=== PATIENT | male | born 1970 | race Caucasian/White ===

== ENCOUNTER 2019-04-06 19:36 | Emergency (ER) | payer BC, OTHER ==
[~2019-04-06] VITALS: Ht 177 cm; Wt 100.0 kg
[2019-04-06] MEDS ORDERED: NS IV 1000 ML 1,000 ML IV SCH (20:11)
[2019-04-06] MEDS ORDERED: fentaNYL INJECTION 100 MCG/2 ML AMP IVP ONE (20:15)
--- NOTE | 2019-04-06 20:18 | ED GI ---
General Chief Complaint: Abdominal/GI Problems Stated Complaint: LOW BACK PAIN GOING INTO LEGS, BLOOD IN STOOL Nursing Triage Note: THE PT IS AMBULATORY TO THE ROOM WITHOUT DIFFICULTY. NO DISTRESS IS SEEN ON ARRIVAL. LOC IS NORMAL FOR THE PT. THE PT STATES THAT HE SEEN SOME BLOOD IN HIS STOOL TODAY. Sepsis Screen: No Definite Risk Source of Information: Patient, Spouse Exam Limitations: No Limitations (SIERRA FORREST) History of Present Illness Date Seen by Provider: Apr 06, 2019 Time Seen by Provider: 19:56 Initial Comments The patient presents to ER by private conveyance from home with his with chief complaint that he noticed some bright red blood on wiping as well as in and around the stool itself. He's never had this before. He's never had colonoscopy or abdominal surgery before. He also would like addressed that he's having for the past 3 or 4 days some low back pain radiating down his right leg to the heel. He's never had any imaging or surgery or trauma to his low back. He does not follow routinely with a doctor but when he does see a doctor he sees Dr. Ramirez. For the past few weeks he's also had chest congestion cough and fever as late as 2 days ago. He thinks he has influenza. He has had plenty of sick contacts with flu. He does not smoke cigarettes or have a history of COPD wheezing, asthma etc. He is not on blood thinners nor does he have any known history of anemia. For the past month he says he's been been more fatigued easily and when he can usually work 8 hour day he says now after 2 hours he feels like he is done in. For his back he has been following up with chiropractic. (SIERRA FORREST) Allergies and Home Medications Allergies Coded Allergies: No Known Drug Allergies (Unverified , 04/06/19) Home Medications Hydrocodone Bit/Acetaminophen 1 Tab Tab, 1 EACH PO Q4-6HR PRN for PAIN-MODERATE Prescribed by: SIERRA FORREST on 04/06/192128 Ondansetron 4 Mg Tab.rapdis, 4 MG PO Q6H PRN for NAUSEA/VOMITING Prescribed by: SIERRA FORREST on 04/06/192128 Patient Home Medication List Home Medication List Reviewed: Yes (SIERRA FORREST) Review of Systems Review of Systems Constitutional: see HPI; No chills, No diaphoresis; fever, malaise EENTM: No Blurred Vision, No Double Vision Respiratory: Denies Cough, Denies Shortness of Air Cardiovascular: Denies Chest Pain, Denies Edema Gastrointestinal: See HPI; Denies Abdomen Distended; Abdominal Pain (mild diffuse), Blood Streaked Stools; Denies Constipated, Denies Diarrhea, Denies Difficulty Swallowing, Denies Nausea Genitourinary: Denies Burning, Denies Discharge Musculoskeletal: see HPI, back pain; No joint pain, No neck pain Skin: No hx of skin cancer, No pruritus, No rash Psychiatric/Neurological: Denies Headache, Denies Numbness Endocrine: Denies Flushing, Denies Increased Urine (SIERRA FORREST) All Other Systems Reviewed Negative Unless Noted: Yes (SIERRA FORREST) Past Pvfaleu-Ybfkyo-Lnejse Hx Patient Social History Alcohol Use: Denies Use Recreational Drug Use: No Smoking Status: Never a Smoker Recent Foreign Travel: No Contact w/Someone Who Travel: No Recent Infectious Disease Expo: No Physical Abuse: No Sexual Abuse: No Mistreated: No Fear: No (SIERRA FORREST) Physical Exam Vital Signs Vital Signs - First Documented 04/06/19 04/06/19 19:59 22:56 Temp 36.7 Pulse 73 Resp 18 B/P (MAP) 132/99 (110) Pulse Ox 96 (ROLLYKELLI COB SAWYER) Vital Signs Capillary Refill : Less Than 3 Seconds (SIERRA FORREST) Height/Weight/BMI Height: '" Weight: lbs. oz. kg; 31.00 BMI Method: General Appearance: WD/WN, no apparent distress HEENT: PERRL/EOMI, normal ENT inspection, TMs normal, pharynx normal Neck: non-tender, full range of motion, supple, normal inspection Respiratory: lungs clear, normal breath sounds, no respiratory distress, no accessory muscle use Cardiovascular: normal peripheral pulses, regular rate, rhythm, no edema Peripheral Pulses: 2+ Radial Pulses (R), 2+ Radial Pulses (L) Gastrointestinal: normal bowel sounds, soft; No guarding, No rebound; tenderness (mild, diffuse without mesenteric signs, Rovsing sign, psoas sign or heeltap tenderness) Rectal: normal exam, normal rectal tone, heme positive stool, other (modest apricot size prostate is soft, nonnodular, minimally tender without rectal mass.) Extremities: normal range of motion, normal inspection, no calf tenderness, normal capillary refill Back: normal inspection, no CVA tenderness, no vertebral tenderness, other (ten derness over the iliosacral joint right side) Neurologic/Psychiatric: alert, normal mood/affect, oriented x 3 Skin: normal color, warm/dry (SIERRA FORREST) Progress/Results/Core Measures Results/Orders Lab Results Laboratory Tests Test 04/06/19 20:20 04/06/19 20:50 Range/Units White Blood Count 3.8 L 4.3-11.0 10^3/uL Red Blood Count 4.74 4.35-5.85 10^6/uL Hemoglobin 14.6 13.3-17.7 G/DL Hematocrit 44 40-54 % Mean Corpuscular Volume 93 80-99 FL Mean Corpuscular Hemoglobin 31 25-34 PG Mean Corpuscular Hemoglobin Concent 33 32-36 G/DL Red Cell Distribution Width 11.9 10.0-14.5 % Platelet Count 188 130-400 10^3/uL Mean Platelet Volume 10.1 7.4-10.4 FL Neutrophils (%) (Auto) 60 42-75 % Lymphocytes (%) (Auto) 29 12-44 % Monocytes (%) (Auto) 11 0-12 % Eosinophils (%) (Auto) 0 0-10 % Basophils (%) (Auto) 0 0-10 % Neutrophils # (Auto) 2.3 1.8-7.8 X 10^3 Lymphocytes # (Auto) 1.1 1.0-4.0 X 10^3 Monocytes # (Auto) 0.4 0.0-1.0 X 10^3 Eosinophils # (Auto) 0.0 0.0-0.3 10^3/uL Basophils # (Auto) 0.0 0.0-0.1 10^3/uL Sodium Level 138 135-145 MMOL/L Potassium Level 4.0 3.6-5.0 MMOL/L Chloride Level 105 98-107 MMOL/L Carbon Dioxide Level 24 21-32 MMOL/L Anion Gap 9 5-14 MMOL/L Blood Urea Nitrogen 11 7-18 MG/DL Creatinine 1.04 0.60-1.30 MG/DL Estimat Glomerular Filtration Rate > 60 BUN/Creatinine Ratio 11 Glucose Level 96 70-105 MG/DL Calcium Level 8.3 L 8.5-10.1 MG/DL Corrected Calcium 8.5 8.5-10.1 MG/DL Total Bilirubin 0.3 0.1-1.0 MG/DL Aspartate Amino Transf (AST/SGOT) 26 5-34 U/L Alanine Aminotransferase (ALT/SGPT) 19 0-55 U/L Alkaline Phosphatase 76 40-136 U/L Total Protein 7.0 6.4-8.2 GM/DL Albumin 3.8 3.2-4.5 GM/DL Urine Color YELLOW Urine Clarity CLEAR Urine pH 5.5 5-9 Urine Specific [place] >=1.030 1.016-1.022 Urine Protein TRACE H NEGATIVE Urine Glucose (UA) NEGATIVE NEGATIVE Urine Ketones NEGATIVE NEGATIVE Urine Nitrite NEGATIVE NEGATIVE Urine Bilirubin 1+ H NEGATIVE Urine Urobilinogen 0.2 < = 1.0 MG/DL Urine Leukocyte Esterase NEGATIVE NEGATIVE Urine RBC (Auto) NEGATIVE NEGATIVE Urine RBC NONE /HPF Urine WBC NONE /HPF Urine Squamous Epithelial Cells 0-2 /HPF Urine Crystals NONE /LPF Urine Bacteria NEGATIVE /HPF Urine Casts NONE /LPF Urine Mucus LARGE H /LPF Urine Culture Indicated NO (KELLI LOFTON) Micro Results Microbiology 04/06/19 Influenza Types A,B Antigen (FLORI) - Final, Complete (KELLI LOFTON) My Orders Orders - KELLI LOFTON Hydrocodone/Apap 5/325 Tablet (Lortab 5 (04/06/19 23:15) (KELLI LOFTON) Medications Given in ED Current Medications Medications Dose Ordered Sig/Drake Route Start Time Stop Time Status Last Admin Dose Admin Acetaminophen/ Hydrocodone Bitart 1 ea Q4H PRN PO 04/06/19 23:15 04/06/19 23:34 DC 04/06/19 23:11 1 EA Acetaminophen/ Hydrocodone Bitart 1 tab ONCE ONCE PO 04/06/19 23:15 04/06/19 23:16 DC 04/06/19 23:08 1 TAB Fentanyl Citrate 50 mcg ONCE ONCE IVP 04/06/19 20:15 04/06/19 20:16 DC 04/06/19 20:33 50 MCG Iohexol 100 ml ONCE ONCE IV 04/06/19 21:15 04/06/19 21:42 DC 04/06/19 21:58 100 ML Pantoprazole 40 mg ONCE ONCE IV 04/06/19 20:30 04/06/19 20:31 DC 04/06/19 20:37 40 MG Sodium Chloride 80 ml ONCE ONCE IV 04/06/19 21:15 04/06/19 21:42 DC 04/06/19 21:58 80 ML (KELLI LOFTONP) Vital Signs/I&O 04/06/19 04/06/19 19:59 22:56 Temp 36.7 36.9 Pulse 73 74 Resp 18 18 B/P (MAP) 132/99 (110) 125/75 (110) Pulse Ox 96 04/07/19 00:00 Intake Total 1000 ml Balance 1000 ml (KELLI LOFTON) Blood Pressure Mean: 110 Progress Progress Note : Time: 20:17 Progress Note The patient has a plethora of subacute complaints. We will get an influenza swab, chest x-ray. He has aseptic vital signs. Labs can help reveal if he has a significant anemia. A fecal occult blood test can confirm that he is having rectal bleeding. We'll give him pantoprazole by IV as well as some fluids to help induce a urine. This will help rule out the possibility of a kidney stone as a source of his neck pain and blood in toilet. We do CT of his abdomen pelvis with IV contrast and some fentanyl for pain. Toradol would be a better choice but would like to avoid increasing his bleeding. We can then have him follow-up with surgery for outpatient endoscopy as appropriate if nothing emergent is found. (SIERRA FORREST) Diagnostic Imaging Diagonstic Imaging: Xray Plain Films/CT/US/NM/MRI: chest (1v) Comments [facility] [place], [place] NAME: GIOVANNY DUKES [facility] REC#: [id number] PT STATUS: REG ER : 1970 PHYSICIAN: SIERRA FORREST MD ADMIT DATE: 04/06/19/ER Signed Date of Exam:04/06/19 CHEST 1 VIEW, AP/PA ONLY INDICATION: Bloody stools and back pain. EXAMINATION: Single view of the chest was obtained. FINDINGS: The heart size is normal. There is patchy right basilar atelectasis and/or pneumonitis. There is no pleural effusion or pneumothorax. The mediastinum is unremarkable. IMPRESSION: Patchy right basilar atelectasis and/or pneumonitis. Dictated by: Dictated on workstation # [id number] Dict: 04/06/192055 Trans: 04/06/192104 PJE [id number] Interpreted by: DELMIS KELLY MD Electronically signed by: DELMIS KELLY MD 04/06/192104 Reviewed: Reviewed by Me Diagonstic Imaging: CT (with IV contrast) Plain Films/CT/US/NM/MRI: abdomen, pelvis Comments Symmetric nephrograms without hydronephrosis or perinephric stranding. No evidence of ureteral or bladder stone. Left parapelvic renal cyst that is incidental. Basilar atelectasis. Mild elevation of the right hemidiaphragm. Suggestion of mild hepatic steatosis. Gallbladder appears within limits. No bowel dilatation or free air. Normal caliber appendix without secondary signs. No free fluid. L4-L5 spondylosis/discogenic change. Reviewed: Reviewed by Me (SIERRA FORREST) Departure Impression Primary Impression: Influenza A Additional Impressions: Bright red blood per rectum Lumbago with sciatica, right side Qualified Codes: M54.41 - Lumbago with sciatica, right side Disposition: 01 HOME, SELF-CARE Condition: Stable Departure-Patient Inst. Decision time for Depature: 21:29 (SIERRA FORREST) Referrals: SMITA CHASE PANKAJ K MD (PCP/Family) Primary Care Physician Patient Instructions: Bloody Stools, Adult (DC), Sciatica Exercises, Flu, Adult (DC) Add. Discharge Instructions: Drink lots of fluids. Humidifiers and vapor rubs or helpful. You may return to work after you are fever free for 24 hours without the use of Tylenol or ibuprofen. Avoid NSAIDs such as ibuprofen, Aleve, naproxen as much as possible. Call Dr. Chase and set up a colonoscopy at your convenience over the next few weeks. Tylenol 650 mg every 8 hours as needed for pain or fever. You may use the hydrocodone one tablet every 6 hours as needed for severe breakthrough pain that is keeping you from being functional. Hydrocodone will cause constipation and drowsiness. All discharge instructions reviewed with patient and/or family. Voiced understanding. Scripts Ondansetron (Ondansetron Odt) 4 Mg Tab.rapdis 4 MG PO Q6H PRN for NAUSEA/VOMITING, #12 TAB 0 Refills Prov: SIERRA FORREST 04/06/19 Hydrocodone Bit/Acetaminophen (Hydrocodone/Acetaminophen 5/325mg Tablet) 1 Tab Tab 1 EACH PO Q4-6HR PRN for PAIN-MODERATE MDD 10 for 3 Days, #14 TAB 0 Refills Prov: SIERRA FORREST 04/06/19 Work/School Note: Work Release Form Date Seen in the Emergency Department: Apr 06, 2019 Return to Work: Apr 11, 2019 Restrictions: Return-No Fever (24hrs) Copy Copies To 1: SMITA CHASE TITUS J Apr 06, 2019 20:18 KELLI LOFTON Apr 06, 2019 23:04
[2019-04-06 20:28] LABS: BASOPHILS % (AUTO) 0 % (0-10); EOSINOPHILS % (AUTO) 0 % (0-10); HEMATOCRIT 44 % (40-54); HEMOGLOBIN 14.6 G/DL (13.3-17.7); LYMPHOCYTES # (AUTO) 1.1 X 10^3 (1.0-4.0); LYMPHOCYTES % (AUTO) 29 % (12-44); MEAN CORPUSCULAR HEMOGLOBIN 31 PG (25-34); MEAN CORPUSCULAR HGB CONC 33 G/DL (32-36); MEAN CORPUSCULAR VOLUME 93 FL (80-99); MEAN PLATELET VOLUME 10.1 FL (7.4-10.4); MONOCYTES # (AUTO) 0.4 X 10^3 (0.0-1.0); MONOCYTES % (AUTO) 11 % (0-12); NEUTROPHILS # (AUTO) 2.3 X 10^3 (1.8-7.8); NEUTROPHILS % (AUTO) 60 % (42-75); PLATELET COUNT 188 10^3/uL (130-400); RED CELL DISTRIBUTION WIDTH 11.9 % (10.0-14.5); WHITE BLOOD COUNT 3.8 10^3/uL (4.3-11.0)
[2019-04-06] MEDS ORDERED: PANTOPRAZOLE 40 MG (PROTONIX) VIAL IV ONE (20:30)
[2019-04-06 20:47] LABS: ALANINE AMINOTRANSFERASE 19 U/L (0-55); ALBUMIN 3.8 GM/DL (3.2-4.5); ALKALINE PHOSPHATASE 76 U/L (40-136); BILIRUBIN,TOTAL 0.3 MG/DL (0.1-1.0); BUN/CREATININE RATIO 11; CALCIUM 8.3 MG/DL (8.5-10.1); CARBON DIOXIDE 24 MMOL/L (21-32); CHLORIDE 105 MMOL/L (98-107); CREATININE SERUM 1.04 MG/DL (0.60-1.30); GFR ESTIMATED > 60; GLUCOSE 96 MG/DL (70-105); SODIUM 138 MMOL/L (135-145)
--- NOTE | 2019-04-06 21:00 | Diagnostic Imaging Report ---
INDICATION: Bloody stools and back pain. EXAMINATION: Single view of the chest was obtained. FINDINGS: The heart size is normal. There is patchy right basilar atelectasis and/or pneumonitis. There is no pleural effusion or pneumothorax. The mediastinum is unremarkable. IMPRESSION: Patchy right basilar atelectasis and/or pneumonitis. Dictated by: Dictated on workstation # [id number]
[2019-04-06] MEDS ORDERED: NS 100 ML (IVPB) BAG IV ONE (21:15)
[2019-04-06] MEDS ORDERED: IOHEXOL 350 MG/ML 100 ML (OMNIPAQUE 350) VIAL IV ONE (21:15)
[2019-04-06 21:22] LABS: CLARITY,URINE CLEAR; COLOR,URINE YELLOW; GLUCOSE, URINE (UA) NEGATIVE (NEGATIVE); KETONES,URINE NEGATIVE (NEGATIVE); LEUKOCYTE ESTERASE ,URINE NEGATIVE (NEGATIVE); NITRITE,URINE NEGATIVE (NEGATIVE); PH,URINE 5.5 (5-9); PROTEIN,URINE TRACE (NEGATIVE)
[2019-04-06 21:23] LABS: BACTERIA,URINE NEGATIVE /HPF; BILIRUBIN,URINE 1+ (NEGATIVE); SQUAMOUS EPITHELIAL CELL,UR 0-2 /HPF
[2019-04-06] MEDS ORDERED: ACHD5005 PO (21:29)
[2019-04-06] MEDS ORDERED: ONDA4TAB11 PO (21:29)
--- NOTE | 2019-04-06 22:08 | NUR ---
BED SIDE OCCULT STOOL IS POSITIVE. IS INFORMED.
--- NOTE | 2019-04-06 22:30 | NUR ---
ASSUMED CARE OF THIS PATIENT AT THIS TIME. INTRODUCED SELF TO PATIENT AND SPOUSE. DISCUSSED PLAN OF CARE AND TIME LINE FOR DISCHARGE. PATIENT IS RESTING QUIETLY DENIES PAIN OR NEEDS AT THIS TIME WILL CONTINUE TO MONITOR.
[2019-04-06 22:56] VITALS: BP 125/75
[2019-04-06] MEDS ORDERED: HYDROcodone/APAP 5 MG/325 MG (LORTAB) TAB ONE (23:00)
[2019-04-06] MEDS ORDERED: RX-HYDROCODONE/APAP 5/325 MG #4 TAB PK PO PRN (23:15)
[2019-04-06] MEDS ORDERED: HYDROcodone/APAP 5 MG/325 MG (LORTAB) TAB PO ONE (23:15)
--- NOTE | 2019-04-07 07:08 | Diagnostic Imaging Report ---
PROCEDURE: CT abdomen and pelvis with contrast. TECHNIQUE: Multiple contiguous axial images were obtained through the abdomen and pelvis after administration of intravenous contrast. Auto Exposure Controls were utilized during the CT exam to meet ALARA standards for radiation dose reduction. INDICATION: Low back pain There are no prior studies available for comparison. The liver is homogeneous and not enlarged. The spleen, pancreas, adrenals, kidneys, aorta and inferior vena cava and gallbladder show no sign of an acute abnormality. There does appear to be 2.6 cm parapelvic cyst involving the left kidney. The stomach is not well-distended and consequently difficult to assess. There is gas in both the large and small bowel in a nonspecific fashion. There is no sign of bowel obstruction. The appendix was visualized and is not abnormally thickened. There is no pelvic mass or free fluid collection evident. The urinary bladder and prostate gland are grossly unremarkable. The bone windows show no sign of a fracture or of a destructive lesion. There is degenerative disc and bony disease involving the lower lumbar spine. There may be trefoil stenosis at L4-L5. If further imaging is desired, then MRI would be recommended. The lung bases are generally clear. There is a small amount of atelectasis at each lung base. There is elevation of the right hemidiaphragm and there is a small amount of compressive atelectasis adjacent to the diaphragm. IMPRESSION: 1. There is no acute abnormality of the abdomen or pelvis. 2. There is degenerative disc and bony disease involving the lower lumbar spine and there is a question of trefoil stenosis at L4-L5. Recommendations as above. Dictated by: Dictated on workstation # [id number]
== END 2019-04-06 23:15 | disposition home or self-care (01) ==
LOC: ER 19:40
DX: J10.1 Influenza due to other identified influenza virus with other respiratory manifestations (principal); M54.41 Lumbago with sciatica, right side; K62.5 Hemorrhage of anus and rectum
CPT/HCPCS: 36415; 71045; 74177; 80053; 81000; 85025; 87804

== ENCOUNTER 2019-04-10 05:41 | Outpatient (CLI) | payer BC ==
[~2019-04-10] VITALS: Ht 172.7 cm; Wt 99.1 kg
[~2019-04-10 05:41] MED LIST: ACHD5005 PO; ONDA4TAB11 PO
[2019-04-10] MEDS ORDERED: CYCL10TA9 PO (09:59)
== END 2019-04-10 12:02 | disposition home or self-care (01) ==
LOC: PREOP 05:41
PROVIDERS: ATTEND Surgery
DX: Z01.818 Encounter for other preprocedural examination (principal)

== ENCOUNTER 2019-04-23 07:55 | Outpatient (CLI) | payer BC ==
[~2019-04-23] VITALS: Ht 172.7 cm; Wt 101.0 kg
[~2019-04-23 07:55] MED LIST changes: -ACET-2267 PO; -HOLD METFORMIN - RECEIVED CONTRAST 20 ML VIAL IV SCH; -HYDR-4226 PO; -IOHEXOL 350 MG/ML 100 ML (OMNIPAQUE 350) VIAL IV ONE; -NS 100 ML (IVPB) BAG IV ONE
[2019-04-23 08:06] VITALS: BP 125/80
[2019-04-23 08:36] LABS: BASOPHILS % (AUTO) 1 % (0-10); EOSINOPHILS # (AUTO) 0.2 10^3/uL (0.0-0.3); EOSINOPHILS % (AUTO) 2 % (0-10); HEMATOCRIT 44 % (40-54); HEMOGLOBIN 14.7 G/DL (13.3-17.7); LYMPHOCYTES # (AUTO) 1.6 X 10^3 (1.0-4.0); LYMPHOCYTES % (AUTO) 25 % (12-44); MEAN CORPUSCULAR HEMOGLOBIN 31 PG (25-34); MEAN CORPUSCULAR HGB CONC 33 G/DL (32-36); MEAN CORPUSCULAR VOLUME 94 FL (80-99); MEAN PLATELET VOLUME 9.7 FL (7.4-10.4); MONOCYTES # (AUTO) 0.4 X 10^3 (0.0-1.0); MONOCYTES % (AUTO) 7 % (0-12); NEUTROPHILS # (AUTO) 4.3 X 10^3 (1.8-7.8); NEUTROPHILS % (AUTO) 66 % (42-75); PLATELET COUNT 324 10^3/uL (130-400); RED CELL DISTRIBUTION WIDTH 12.1 % (10.0-14.5); WHITE BLOOD COUNT 6.5 10^3/uL (4.3-11.0)
[2019-04-24] MEDS ORDERED: ACET-2267 PO (14:08)
[2019-04-24] MEDS ORDERED: ONDA4TAB11 PO (14:09)
[2019-04-24] MEDS ORDERED: HYDR-4226 PO (14:15)
== END 2019-04-23 08:40 | disposition home or self-care (01) ==
LOC: PREOP 07:55
PROVIDERS: ATTEND Surgery
DX: Z01.812 Encounter for preprocedural laboratory examination (principal); C18.9 Malignant neoplasm of colon, unspecified
CPT/HCPCS: 36415; 82378; 85025; 87081

== ENCOUNTER → 2019-04-23 | Outpatient (CLI) | payer BC ==
[~2019-04-23] MED LIST changes: +ACET-2267 PO; +CYCL10TA9 PO; +HOLD METFORMIN - RECEIVED CONTRAST 20 ML VIAL IV SCH; +HYDR-4226 PO; +IOHEXOL 350 MG/ML 100 ML (OMNIPAQUE 350) VIAL IV ONE; +NS 100 ML (IVPB) BAG IV ONE
--- NOTE | 2019-04-23 12:44 | Diagnostic Imaging Report ---
CT CHEST W TECHNIQUE: Multiple contiguous axial images were obtained through the chest without the use of intravenous contrast. All CT scans use one or more of the following dose optimizing techniques: automated exposure control, MA and/or KvP adjustment based on a patient size and exam type, or iterative reconstruction. INDICATION: Colon cancer. COMPARISON: CT abdomen and pelvis of 04/06/2019. FINDINGS: Lungs and airway: No endoluminal nodule within the trachea. No pulmonary mass, nodule or consolidation. Specifically, there are no pulmonary nodules that would suggest metastatic disease. Pleura: No pleural effusion or pneumothorax. Heart and mediastinum: Thyroid is normal. No supraclavicular or axillary lymphadenopathy. No mediastinal, hilar or juxtaphrenic lymphadenopathy. Heart is normal in size without pericardial effusion. Normal caliber thoracic aorta. Upper abdomen: No features of metastatic disease in the upper abdomen. Please see CT abdomen and pelvis report from 04/06/2019 for more complete details. Musculoskeletal: No lytic or blastic skeletal lesions. IMPRESSION: 1. No features of metastatic disease in the chest. Dictated by: Dictated on workstation # [id number]
== END ==
LOC: RAD 11:00
PROVIDERS: ATTEND Surgery
DX: C18.9 Malignant neoplasm of colon, unspecified (principal)
CPT/HCPCS: 71260

== ENCOUNTER 2019-04-24 07:03 | Inpatient (IN) | payer BC ==
[~2019-04-24] VITALS: Ht 172.7 cm; Wt 101.0 kg
[2019-04-24] VITALS (12 sets, daily range): BP systolic 104–142; BP diastolic 63–94
[2019-04-24] MEDS ORDERED: LACTATED RINGERS 1,000 ML IV PRN (07:08)
[2019-04-24] MEDS ORDERED: fentaNYL INJECTION 100 MCG/2 ML AMP ONE ×2 (07:12→08:43)
[2019-04-24] MEDS ORDERED: MIDAZOLAM 2 MG/2 ML (VERSED) VIAL ONE (07:12)
[2019-04-24] MEDS ORDERED: ceFAZolin 2 GM/50 ML NS 50 ML IV ONE (07:15)
[2019-04-24] MEDS ORDERED: BUP/EPI 0.5% 1:200,000 (SENSORCAINE) 30 ML VIAL ONE (07:48)
[2019-04-24] MEDS ORDERED: ROCURONIUM 10 MG/ML 5 ML SYRINGE IV ONE (08:04)
[2019-04-24] MEDS ORDERED: SEVOFLURANE (ULTANE) 15 ML INHAL SOLN ONE ×6 (08:04→10:09)
[2019-04-24] MEDS ORDERED: LIDOCAINE PF 2% 5 ML (XYLOCAINE) VIAL ONE (08:04)
[2019-04-24] MEDS ORDERED: DEXAMETHASONE 10 MG/ML (DECADRON) 1 ML VIAL ONE (08:04)
[2019-04-24] MEDS ORDERED: ONDANSETRON 4 MG/2 ML (SDV) Z0FRAN ONE (08:04)
[2019-04-24] MEDS ORDERED: proPOfol 200 MG/20 ML (DIPRIVAN) VIAL IV ONE (08:04)
--- NOTE | 2019-04-24 08:13 | Progress Note-Pre Operative ---
Pre-Operative Progress Note H&P Reviewed The H&P was reviewed, patient examined and no changes noted. Time Seen by Provider: 08:09 Date H&P Reviewed: Apr 24, 2019 Time H&P Reviewed: 08:10 Pre-Operative Diagnosis: Rectal Cancer SMITA CHASE DO Apr 24, 2019 08:13
[2019-04-24] MEDS ORDERED: fentaNYL INJECTION 100 MCG/2 ML AMP IVP ONE (08:30)
[2019-04-24] MEDS ORDERED: morphine INJ 10 MG/ML 1ML (SYR OR VIAL) IVP ONE (08:30)
[2019-04-24] MEDS ORDERED: ONDANSETRON 4 MG/2 ML (SDV) Z0FRAN IVP PRN ×2 (08:30→10:30)
[2019-04-24] MEDS ORDERED: MEPERIDINE (DEMEROL) INJ 50 MG/ML IVP ONE (08:30)
[2019-04-24] MEDS ORDERED: morphine INJ 10 MG/ML 1ML (SYR OR VIAL) ONE (09:16)
[2019-04-24] MEDS ORDERED: BUPIVACAINE 0.5% 30 ML (SENSORCAINE) VIAL ONE (09:55)
[2019-04-24] MEDS ORDERED: GLYCOPYRROLATE 0.2 MG/ML (ROBINUL) 2 ML VIAL ONE (10:07)
[2019-04-24] MEDS ORDERED: NEOSTIGMINE 3 MG/3 ML VIAL ONE (10:07)
--- NOTE | 2019-04-24 10:24 | Progress Note-Post Operative ---
Post-Operative Progess Note Surgeon (s)/Car Loader (s) Surgeon SMITA CHASE DO Car Loader: Isaías Pre-Operative Diagnosis Rectal Cancer Post-Operative Diagnosis same pending path Procedure & Operative Findings Date of Procedure 04/24/19 Procedure Performed/Findings LAR Lap-hand assisted with primary anastomosis Anesthesia Type GET Estimated Blood Loss Estimated blood loss (mL): 75ml Specimens/Packing Specimens Removed rectum and portion of sigmoid SMITA CHASE DO Apr 24, 2019 10:24
--- NOTE | 2019-04-24 11:45 | NUR ---
GIOVANNY DUKES admitted to room 424, with an admitting diagnosis of post op colon resection , on 04/24/19 from [facility] , accompanied by staff.GIOVANNY DUKES introduced to surroundings, call light, bed controls, phone, TV, temperature control, lights, meal times, smoking policy, visitor policy, side rail policy, bathrooms and showers. Patient Rights given to patient in the handbook. GIOVANNY DUKES verbalizes understanding that [facility] is not responsible for the loss or damage to any personal effects or valuables that are kept in the patients posession during their hospitalization. GIOVANNY DUKES verbalizes understanding of Interdisciplinary Patient Education. Patient and/or family were informed about the Rapid Response Team and its purpose.
[2019-04-24] MEDS: metroNIDAZOLE 500MG/100ML IVPB 100 ML IV SCH ×2 (13:25→20:34)
[2019-04-24] MEDS: ACETAMINOPHEN 500 MG TAB (TYLENOL) PO SCH ×2 (13:26→20:34)
[2019-04-24] MEDS: KETOROLAC 30 MG/ML VIAL IVP SCH ×2 (13:26→17:00)
[2019-04-24] MEDS: LACTATED RINGERS 1,000 ML IV SCH ×3 (13:27→23:50)
[2019-04-24] MEDS ORDERED: ACET-2267 PO (14:08)
[2019-04-24] MEDS ORDERED: ONDA4TAB11 PO (14:09)
[2019-04-24] MEDS ORDERED: HYDR-4226 PO (14:15)
--- NOTE | 2019-04-24 14:15 | NUR ---
SPOKE WITH THE PT AND WENT THRU THE EXT MED HISTORY TO COMPLETE THE MED REC. ONLY MED THE PT TAKES DAILY IS FLEXERIL 10 MG HS THE ZOFRAN AND HYDROCODONE/APAP ARE PRN NEEDED AFTER SURGERY. INDICATES HE HAS NOT TAKEN MUCH OF EITHER OF THOSE- AND IT WAS PICKED UP MORE FOR ANTICIPATION OF SYMPTOMS AFTER SURGERY. OTC MEDS: TYLENOL
[2019-04-24] MEDS: ceFAZolin 2 GM/50 ML NS 50 ML IV SCH ×2 (16:00→23:51)
[2019-04-25] VITALS (7 sets, daily range): BP systolic 96–118; BP diastolic 53–73
[2019-04-25] MEDS: KETOROLAC 30 MG/ML VIAL IVP SCH ×4 (01:22→19:46)
--- NOTE | 2019-04-25 02:38 | OPERATIVE REPORT ---
DATE OF SERVICE: PREOPERATIVE DIAGNOSIS: Rectal cancer. POSTOPERATIVE DIAGNOSIS: Rectal cancer, pending pathology. PROCEDURE: Low anterior resection laparoscopic hand-assisted with primary anastomosis. SURGEON: Juan J Livingston DO REGISTERED APPRAISER: Steven Metz DO. ANESTHESIA: General endotracheal tube. SPECIMEN: Portion of rectum and sigmoid colon. BLOOD LOSS: Approximately 75 mL. FLUIDS: Per anesthesia. POSTOPERATIVE CONDITION: Stable. INDICATION FOR PROCEDURE: The patient is a 49-year-old male, who recently had a colonoscopy unfortunately found a rectal cancer about 11 cm from the anal verge. FINDINGS: The patient had a rectal cancer, able to get below this by about 2 to 3 cm and removed this and sent to pathology. PROCEDURE NOTE: After informed consent was obtained, the patient was brought to the operating room, placed on the table in lithotomy position. He was sterilely prepped and draped in normal fashion. Local lidocaine was used to infiltrate the skin below the umbilicus and made an incision with a #15 blade, carried down through the skin into subcutaneous tissue, then deepened down to subcutaneous tissue with Bovie electrocautery down to fascia. Fascia was incised with Bovie electrocautery and bluntly entered the abdomen. Increased the incision superiorly and inferiorly to be about 6 cm incision below the umbilicus. I then placed a GelPort and then placed 2 more ports, 5 mm port in the right lower quadrant and a 12 mm port in the left lower quadrant done all under direct visualization. Had created pneumoperitoneum and then placed the patient in Trendelenburg, scored along the rectum with a Bovie electrocautery spatula as well and there were some adhesions to the left pelvic gutter and along the sidewall. These were taken down with the Bovie electrocautery as well. They will go down through the peritoneal reflection to get into the low rectal area, felt could feel the mass able to pull this up, then dissected down, actually opened the port and used a contour stapler to come across the sigmoid colon getting right under the colon placed the contour stapler clamping and firing thereby transecting this and then using the LigaSure to come across the mesentery going down to the base of the mesentery and then going down along the mesentery at the base, taking care to stay midline stay away from the ureters down to the sacral promontory and then cut through here with Bovie electrocautery as well as blunt dissection and then did a total mesorectal excision by going right along the sacrum and bluntly dissecting this fat up. We had created the pneumoperitoneum and placed the GelPort after I had used a contour stapler and then continued the dissection laparoscopically. Going down, able to get around the rectum distally below the peritoneal reflection and then below the mass. At this point, took the GelPort out again and then used a Sweetheart to hold down to hold the pelvic tissue out of the way and got another contour stapler across the distal rectum, able to come across this actually took this, took the rectum and then the posterior fat with contour stapler two separate loads able to then remove this. At this point, copiously irrigated. Hemostasis obtained and then I went down below placed dilators 25, 28 and 31 dilator easily went up and Dr. Metz was above could see, then pushed at the distal portion of the rectal stump and then placed the 29 ILS stapler. Just prior to this, we had done a pursestring applicator across the proximal portion of the sigmoid colon and descending colon and then placed a 29 ILS anvil in here. This was then placed into the pelvis and then advanced the ILS stapler and then advanced the trocar through the rectal stump attached the trocar to the anvil then tightened this down, held for 30 seconds and then clamped and fired, held for 20 seconds and then removed this with a three-quarter turn, it came out easily had 2 good donuts, superior donut and inferior donut. Dr. Metz then clamped the colon, used a rigid proctoscope and insufflated some air while he placed some fluid in the pelvis. No bubble seen. No leakage, looked like I could see anastomosis and anastomosis looked good. At this point, then released the air. Copiously irrigated the abdomen with normal saline, suctioned this out and then closed the lower incision with a #1 double stranded PDS suture running from superior portion to inferior portion tying to itself. We then recreated pneumoperitoneum because the 5 mm and 12 mm ports were still in and then looked at the abdominal wall. It was closed and looked good, looked at the anastomosis, there was no tension on the anastomosis and at this point then removed these ports, allowed the pneumoperitoneum to escape. Closed the skin with akilah. Area was cleaned and dried and the patient was transferred to recovery room in stable condition. Sponge, instrument and needle count correct at the end of the case. Dr. Metz assisted in this case helping to make incisions, close incisions as well as identify anatomy, and hold anatomy out of the away. Job ID: [id number] DocumentID: [id number] Dictated Date: 04/24/2019 19:14:10 Equipment Or Machinery Cleaner Date: 04/25/2019 02:37:28 Dictated By: JUAN J LIVINGSTON DO
[2019-04-25] MEDS: ACETAMINOPHEN 500 MG TAB (TYLENOL) PO SCH ×3 (05:31→21:13)
--- NOTE | 2019-04-25 08:01 | Progress Note - Surgery ---
[facility] 04/25/19 0801: Subjective Date Seen by a Provider: Apr 25, 2019 Time Seen by a Provider: 07:45 Subjective/Events-last exam Patient is doing well. States that he had trouble sleeping due to outside noise. Has no abdominal complaints, no nausea or vomiting report. Patient reports sciatic has improved and disappeared after the surgery. Review of Systems General: No Fatigue, No Malaise HEENT: No Head Aches, No Visual Changes, No Dysphasia; Sore Throat (ET tube ) Pulmonary: No Dyspnea, No Cough Cardiovascular: No: Chest Pain, Palpitations, Lt Headedness Gastrointestinal: No: Nausea, Vomiting, Abdominal Pain, Diarrhea, Constipation Genitourinary: No Dysuria, No Frequency, No Incontinence, No Hematuria Musculoskeletal: No: neck pain, back pain Neurological: No: Weakness, Numbness Focused Exam Respiratory: Lungs Clear, Normal Breath Sounds, No Accessory Muscle Use, No Respiratory Distress Cardiovascular: Regular Rate, Rhythm, No Edema, No Gallop, No Murmur, Normal Peripheral Pulses Peripheral Pulses: 2+ Dorsalis Pedis (R), 2+ Left Dors-Pedis (L), 2+ Radial Pulses (R), 2+ Radial Pulses (L) Objective Exam Vital Signs Date Time Temp Pulse Resp B/P (MAP) Pulse Ox O2 Delivery O2 Flow Rate FiO2 04/25/19 04:43 37.4 98 20 107/59 (75) 92 Room Air 04/25/19 00:19 37.6 96 18 96/53 (67) 91 Room Air 04/24/19 19:55 Room Air 04/24/19 19:15 37.1 104 16 113/70 (84) 93 Room Air 04/24/19 15:21 37.1 103 16 104/63 (77) 92 Room Air 04/24/19 14:57 Room Air 04/24/19 11:45 Room Air 04/24/19 11:45 36.4 95 16 131/86 (101) 92 Room Air 04/24/19 11:35 10 132/93 (106) 94 Room Air 04/24/19 11:30 36.4 10 142/91 (108) 93 Room Air 04/24/19 11:20 OxyMask 04/24/19 11:20 12 137/94 (108) 98 OxyMask 10 04/24/19 11:10 11 141/91 (108) 98 OxyMask 10 04/24/19 11:00 11 135/85 (102) 96 OxyMask 10 04/24/19 10:51 10 119/82 (94) 96 Face Tent 10 04/24/19 10:47 OxyMask 10 04/24/19 10:47 36.6 10 119/82 (94) 95 OxyMask 10 04/24/19 09:00 Room Air 04/24/19 08:30 36.7 93 18 137/93 (108) 96 Room Air I & O 04/25/19 07:00 Intake Total 3700 ml Output Total 2005 ml Balance 1695 ml Capillary Refill : Less Than 3 SecondsLess Than 3 Seconds General Appearance: No Apparent Distress, WD/WN Respiratory: Lungs Clear, Normal Breath Sounds, No Accessory Muscle Use, No Respiratory Distress Cardiovascular: Regular Rate, Rhythm, No Edema, No Gallop, No Murmur, Normal Peripheral Pulses Peripheral Pulses: 2+ Dorsalis Pedis (R), 2+ Left Dors-Pedis (L), 2+ Radial Pulses (R), 2+ Radial Pulses (L) Gastrointestinal: soft, no organomegaly, no pulsatile mass Extremity: Normal Capillary Refill, Normal Inspection, Normal Range of Motion, Non Tender, No Calf Tenderness, No Pedal Edema Neurologic/Psychiatric: Alert, Oriented x3, No Motor/Sensory Deficits, Normal Mood/Affect, manager line II-XII Norm as Tested Skin: Normal Color, Warm/Dry Assessment/Plan Assessment/Plan Assessment/Plan Post-OP: - Continue to encourage ambulation and incentive spirometry use - Advance diet as tolerated - Pain control - Acetaminophen PRN Clinical Quality Measures DVT/VTE Risk/Contraindication: Risk Factor Score Per Nursin RFS Level Per Nursing on Admit: 3=High JUAN J CHASE DO 04/25/19 1029: Subjective Time Seen by a Provider: 09:51 Subjective/Events-last exam Pt seen and examined, states he is passing some liquid and blood. Tolerated clears without any difficulty and pain is controlled with current meds. Review of Systems HEENT: No Head Aches, No Visual Changes Pulmonary: No Dyspnea, No Cough Cardiovascular: No: Chest Pain, Palpitations Gastrointestinal: Abdominal Pain (minimal at incision); No: Nausea, Vomiting Objective Exam General Appearance: No Apparent Distress, WD/WN Respiratory: Lungs Clear, Normal Breath Sounds, No Accessory Muscle Use, No Respiratory Distress Cardiovascular: Regular Rate, Rhythm, No Murmur Gastrointestinal: soft, tenderness (at incision), other (incisions are c/d/i) Assessment/Plan Assessment/Plan Assessment/Plan S/P LAR Advance to soft diet, pt encouraged to ambulate 10 x per day (or more) and use IS. Supervisory-Addendum Brief Verification & Attestation Participated in pt care: history, MDM, physical Personally performed: exam, history, MDM Care discussed with: Medical Student Procedures: n/a Verification and Attestation of Medical Student E/M Service A medical student performed and documented this service. I then reviewed and verified all information documented by the medical student and made modifications to such information, when appropriate. I personally performed a physical exam, medical decision making and then discussed any differences between the notes and made revisions as necessary to create one note. Juan J Chase , 04/25/19 , 10:29 [facility] Apr 25, 2019 08:01 JUAN J CHASE DO Apr 25, 2019 10:29
[2019-04-25] MEDS: ENOXAPARIN 40 MG/0.4 ML (LOVENOX) SYR SC SCH (08:48)
[2019-04-25] MEDS: LACTATED RINGERS 1,000 ML IV SCH (08:49)
[2019-04-25] MEDS ORDERED: PANTOPRAZOLE 40 MG (PROTONIX) VIAL IVP SCH (09:00)
--- NOTE | 2019-04-25 14:39 | Anesthesia-General Post-Op ---
General Patient Condition Mental Status/LOC: Same as Preop Cardiovascular: Satisfactory Nausea/Vomiting: Absent Respiratory: Satisfactory Pain: Controlled Complications: Absent Post Op Complications Complications None Follow Up Care/Instructions Patient Instructions None needed. Anesthesia/Patient Condition Patient Condition Patient is doing well, no complaints, stable vital signs, no apparent adverse anesthesia problems. ALEXIS TERAN DO Apr 25, 2019 14:39
[2019-04-26] MEDS: KETOROLAC 30 MG/ML VIAL IVP SCH ×3 (01:24→13:10)
--- OUTSIDE RECORDS SUMMARY | 2019-04-26 02:29 | XMS REPORT | Continuity of Care Document ---
Author Organization Unknown Address Unknown Phone Unavailable Allergies Active Description Code Type Severity Reaction Onset Reported/Identified Relationship to Patient Clinical Status Yes No Known Drug Allergies [id number] Drug Allergy Unknown N/A 04/15/2019 Medications There is no data. Problems Date Dx Coded Attending Type Code Diagnosis Diagnosed By 04/06/2019 ADRIANE ARTEAGA, SIERRA Verduzco Ot J10. 1 FLU DUE TO OTH IDENT INFLUENZA VIRUS W O 04/06/2019 ADRIANE ARTEAGA, SIERRA Verduzco Ot K62. 5 HEMORRHAGE OF ANUS AND RECTUM 04/06/2019 ADRIANE ARTEAGA, SIERRA Verduzco Ot M54. 41 LUMBAGO WITH SCIATICA, RIGHT SIDE 04/06/2019 ADRIANE ARTEAGA, SIERRA Verduzco Ot M54. 5 LOW BACK PAIN 04/10/2019 DELMAN DO, SMITA B Ot Z01.8 18 ENCOUNTER FOR OTHER PREPROCEDURAL EXAMIN 04/11/2019 DELMAN DO, SMITA B Ot Z01.8 18 ENCOUNTER FOR OTHER PREPROCEDURAL EXAMIN 04/15/2019 DELMAN DO, SMITA B Ot C20 MALIGNANT NEOPLASM OF RECTUM 04/15/2019 DELMAN DO, SMITA B Ot K64.8 OTHER HEMORRHOIDS 04/17/2019 DELMAN DO, SMITA B Ot C20 MALIGNANT NEOPLASM OF RECTUM 04/17/2019 DELMAN DO, SMITA B Ot K64.8 OTHER HEMORRHOIDS 04/17/2019 DELMAN DO, SMITA B Ot C20 MALIGNANT NEOPLASM OF RECTUM 04/17/2019 DELMAN DO, SMITA B Ot K64.8 OTHER HEMORRHOIDS Procedures There is no data. Results Test Result Range Complete blood count (CBC) with automate d white blood cell (WBC) differential - 04/06/19 20:20 Blood leukocytes automated count (number/volume) 3.8 10*3/uL 4.3-11.0 Blood erythrocytes automated count (number/volume) 4.74 10*6/uL 4.35-5.85 Venous blood hemoglobin measurement (mass/volume) 14.6 g/dL 13.3-17.7 Blood hematocrit (volume fraction) 44 % 40-54 Automated erythrocyte mean corpuscular volume 93 [ foz_us] 80-99 Automated erythrocyte mean corpuscular h emoglobin (mass per erythrocyte) 31 pg 25-34 Automated erythrocyte mean corpuscular h emoglobin concentration measurement (mass/volume) 33 g/dL 32-36 Automated erythrocyte distribution width ratio 11. 9 % 10.0- 14.5 Automated blood platelet count (count/volume) 188 10*3/uL 130-400 Automated blood platelet mean volume measurement 10.1 [foz_us] 7.4-10.4 Automated blood neutrophils/100 leukocytes 60 % 42-75 Automated blood lymphocytes/100 leukocytes 29 % 12-44 Blood monocytes/100 leukocytes 11 % 0-12 Automated blood eosinophils/100 leukocytes 0 % 0-10 Automated blood basophils/100 leukocytes 0 % 0-10 Blood neutrophils automated count (number/volume) 2.3 10*3 1.8-7.8 Blood lymphocytes automated count (number/volume) 1.1 10*3 1.0-4.0 Blood monocytes automated count (number/volume) 0. 4 10*3 0.0-1.0 Automated eosinophil count 0.0 10*3/uL 0 .0-0.3 Automated blood basophil count (count/volume) 0.0 10*3/uL 0.0-0.1 Comprehensive metabolic panel - 04/06/19 20:20 Serum or plasma sodium measurement (moles/volume) 138 mmol/L 135-145 Serum or plasma potassium measurement (moles/volume) 4.0 mmol/L 3.6-5.0 Serum or plasma chloride measurement (moles/volume) 105 mmol/L 98-107 Carbon dioxide 24 mmol/L 21-32 Serum or plasma anion gap determination (moles/volume) 9 mmol/L 5-14 Serum or plasma urea nitrogen measurement (mass/volume ) 11 mg/dL 7-18 Serum or plasma creatinine measurement (mass/volume) 1.04 mg/dL 0.60-1.30 Serum or plasma urea nitrogen/creatinine mass ratio 11 NRG Serum or plasma creatinine measurement w ith calculation of estimated glomerular filtration rate > NRG Serum or plasma glucose measurement (mass/volume) 96 mg/dL 70-105 Serum or plasma calcium measurement (mass/volume) 8.3 mg/dL 8.5-10.1 Serum or plasma total bilirubin measurement (mass/volu me) 0.3 mg/dL 0.1-1.0 Serum or plasma alkaline phosphatase penelope surement (enzymatic activity/volume) 76 U/L 40-136 Serum or plasma aspartate aminotransfera se measurement (enzymatic activity/volume) 26 U/L 5-34 Serum or plasma alanine aminotransferase measurement (enzymatic activity/volume) 19 U/L 0-55 Serum or plasma protein measurement (mass/volume) 7.0 g/dL 6.4-8.2 Serum or plasma albumin measurement (mass/volume) 3.8 g/dL 3.2-4.5 CALCIUM CORRECTED 8.5 mg/dL 8.5-10.1 Complete urinalysis with reflex to cultu re - 04/06/19 20:50 Urine color determination YELLOW NRG Urine clarity determination CLEAR NR G Urine pH measurement by test strip 5.5 5-9 Specific gravity of urine by test strip >= 1.016-1.022 Urine protein assay by test strip, semi-quantitative TRACE NEGATIVE Urine glucose detection by automated test strip NE GATIVE NEGATIVE Erythrocytes detection in urine sediment by light micr oscopy NEGATIVE NEGATIVE Urine ketones detection by automated test strip NE GATIVE NEGATIVE Urine nitrite detection by test strip NEGATIVE NEGATIVE Urine total bilirubin detection by test strip 1+ NEGATIVE Urine urobilinogen measurement by automated test strip (mass/volume) 0.2 mg/dL < = 1.0 Urine leukocyte esterase detection by dipstick NEG ATIVE NEGATIVE Automated urine sediment erythrocyte cou nt by microscopy (number/high power field) NONE NRG Automated urine sediment leukocyte count by microscopy (number/high power field) NONE NRG Bacteria detection in urine sediment by light microsco py NEGATIVE NRG Squamous epithelial cells detection in u rine sediment by light microscopy 0-2 NRG Crystals detection in urine sediment by light microsco py NONE NRG Casts detection in urine sediment by light microscopy NONE NRG Mucus detection in urine sediment by light microscopy LARGE NRG Complete urinalysis with reflex to culture NO NRG Influenza virus A and B antigen detectio n - 04/06/19 20:52 CALL POSITIVES (F1 HELP) CALLED TO LUCY IN ER@[phone] NRG FLU RESULT POSITIVE FOR INFLUENZA A ANT IGEN, NEG FOR B ANTIGEN, BY IA NRG Methicillin resistant Staphylococcus aur eus (MRSA) screening culture - 04/23/19 08:15 Methicillin resistant Staphylococcus aureus (MRSA) scr eening culture NEG NRG Complete blood count (CBC) with automate d white blood cell (WBC) differential - 04/23/19 08:25 Blood leukocytes automated count (number/volume) 6.5 10*3/uL 4.3-11.0 Blood erythrocytes automated count (number/volume) 4.74 10*6/uL 4.35-5.85 Venous blood hemoglobin measurement (mass/volume) 14.7 g/dL 13.3-17.7 Blood hematocrit (volume fraction) 44 % 40-54 Automated erythrocyte mean corpuscular volume 94 [ foz_us] 80-99 Automated erythrocyte mean corpuscular h emoglobin (mass per erythrocyte) 31 pg 25-34 Automated erythrocyte mean corpuscular h emoglobin concentration measurement (mass/volume) 33 g/dL 32-36 Automated erythrocyte distribution width ratio 12. 1 % 10.0- 14.5 Automated blood platelet count (count/volume) 324 10*3/uL 130-400 Automated blood platelet mean volume measurement 9.7 [foz_us] 7.4-10.4 Automated blood neutrophils/100 leukocytes 66 % 42-75 Automated blood lymphocytes/100 leukocytes 25 % 12-44 Blood monocytes/100 leukocytes 7 % 0-12 Automated blood eosinophils/100 leukocytes 2 % 0-10 Automated blood basophils/100 leukocytes 1 % 0-10 Blood neutrophils automated count (number/volume) 4.3 10*3 1.8-7.8 Blood lymphocytes automated count (number/volume) 1.6 10*3 1.0-4.0 Blood monocytes automated count (number/volume) 0. 4 10*3 0.0-1.0 Automated eosinophil count 0.2 10*3/uL 0 .0-0.3 Automated blood basophil count (count/volume) 0.0 10*3/uL 0.0-0.1 Blood type T Indirect antibody screen pa isabell - 04/23/19 08:25 WRISTBAND NUMBER [id number] NRG ABO+Rh group AP NRG Blood group antibody screen NEGATIVE NR G Serum ragweed IgE antibody assay - 04/22 08:25 [id number] <1.7 0.0-5.0 Methicillin resistant Staphylococcus aur eus (MRSA) screening culture - 04/24/19 07:10 Methicillin resistant Staphylococcus aureus (MRSA) scr eening culture NEG NRG Encounters ACCT No. Visit Date/Time Discharge Status Pt. Type Provider Facility Loc./Unit Complaint [id number] 04/23/2019 07:55:00 08:40:00 DIS Outpatient SMITA CHASE DO [facility] PREOP COLON CANCER [id number] 04/15/2019 11:17:00 13:15:00 DIS Outpatient SMITA CHASE DO [facility] ENDO BLOOD IN STOOLS [id number] 04/10/2019 05:41:00 12:02:00 DIS Outpatient SMITA CHASE DO [facility] PREOP COLONOSCOPY [id number] 04/06/2019 19:40:00 23:15:00 DIS Emergency ADRIANE ARTEAGA, SIERRA Verduzco [facility] ER LOW BACK PAIN GOING INT O LEGS, BLOOD IN STOOL [id number] 04/24/2019 07:03:[address] Inpatient SMITA CHASE DO [facility] 4TH COLON CANCER [id number] 04/23/2019 11:00:[address] Outpatient SMITA CHASE DO [facility] RAD COLON CANCER
[2019-04-26 04:31] VITALS: BP 105/66
[2019-04-26] MEDS: ACETAMINOPHEN 500 MG TAB (TYLENOL) PO SCH ×2 (04:34→13:43)
--- NOTE | 2019-04-26 06:34 | Progress Note - Surgery ---
Subjective Time Seen by a Provider: 06:14 Subjective/Events-last exam Pt seen and examined, states he has some pain at incision. He is tolerating soft diet and still passing gas. He would like to go home. Review of Systems General: No Chills Pulmonary: No Dyspnea, No Cough Cardiovascular: No: Chest Pain, Palpitations Gastrointestinal: Abdominal Pain (at incision when he coughs); No: Nausea, Vomiting Objective Exam Vital Signs Date Time Temp Pulse Resp B/P (MAP) Pulse Ox O2 Delivery O2 Flow Rate FiO2 04/26/19 04:31 37.0 75 16 105/66 (79) 94 Room Air 04/25/19 23:57 36.9 78 18 108/60 (76) 94 Room Air 04/25/19 21:00 Room Air 04/25/19 19:04 37.0 85 16 113/67 (82) 95 Room Air 04/25/19 16:00 37.2 89 16 102/60 (74) 93 Room Air 04/25/19 13:00 36.9 89 16 114/63 (80) 96 Room Air 04/25/19 09:00 Room Air 04/25/19 07:57 37.4 93 20 118/73 (88) 94 Room Air I & O 04/26/19 07:00 Intake Total 3810 ml Balance 3810 ml Capillary Refill : Less Than 3 SecondsLess Than 3 Seconds General Appearance: No Apparent Distress, WD/WN Respiratory: Lungs Clear, Normal Breath Sounds, No Accessory Muscle Use, No Respiratory Distress Cardiovascular: Regular Rate, Rhythm, No Murmur Peripheral Pulses: 2+ Dorsalis Pedis (R), 2+ Left Dors-Pedis (L), 2+ Radial Pulses (R), 2+ Radial Pulses (L) Gastrointestinal: soft, tenderness (at incision), other (incisions are c/d/i) Results Lab Microbiology 04/24/19 MRSA Screen - Final, Complete MRSA not isolated Assessment/Plan Assessment/Plan Assessment/Plan S/P LAR Pt is tolerating diet with flatus and pain is well controlled; therefore, will d/c pt home to follow up with me in a week. Clinical Quality Measures DVT/VTE Risk/Contraindication: Risk Factor Score Per Nursin RFS Level Per Nursing on Admit: 3=High SMITA CHASE DO Apr 26, 2019 06:34
--- NOTE | 2019-04-26 06:37 | Discharge Inst-Surgical ---
Discharge Inst-Surgical Depart Medication/Instructions New, Converted or Re-Newed RX: Other (Pt has home meds, if not taking Hydrocodone can take Tylenol. Also can take Ibuprofen at home.) Activity Activity as Tolerated: Yes Activity Instructions: Avoid Stress to Incision Driving Instructions: No Driving/Refer to Dr. Ross Discharge Diet: No Restrictions Diet After 24 Hours: Clear Liquid if Nauseous If Any Problems/Questions/Issu: Contact Your Physician, Go to Emergency Room Skin/Wound Care Infection Signs and Symptoms: Increased Redness, Foul Odor of Wound, Increased Drainage, Skin Itchy or Has a Rash, Increased Swelling, Temperature Above 101 F Bathing Instructions: Shower Stitches/[place]/Dermabond Dis: Care of [place] Ice Pack: Ice On and Off Site SMITA CHASE DO Apr 26, 2019 06:37
--- NOTE | 2019-04-26 06:38 | Discharge Inst-Surgical ---
Discharge Inst-Surgical Depart Medication/Instructions Patient Instructions Follow up Appt: Make appointment for 1 week. [phone] Instructions: No lifting greater than 20 pounds. No strenuous activity. May shower in 24 hours, no tub bath or soaking. Use incentive spirometer at home as directed. No Smoking Skin/Wound Care: May remove bandages in am. You need to leave the Dermabond on incision it will fall off on it's own. Symptoms to Report: Appetite Changes, Extremity Discoloration, Numbness/Tingling, Swelling Increased, Bleeding Excessive, Eyesight Changes, Pain Increased, Urine Color Change, Constipation(Persistent), Fever over 101 degree F, Pain/Pressure in chest, Urinating Difficulty, Cough Up/Vomit Blood, Heart Beat Irreg/Pounding, Pain/Pressure in jaw, Cramps in feet or legs, Lightheadedness, Pain/Pressure in shoulder, Diarrhea(Persistent), Memory Changes Suddenly, Questions/Concerns, Weight gain consecutive days, Dizziness/Fainting, Nausea/Vomiting, Shortness of Breath, Weight gain over 2 pounds If questions or concerns contact your physician Or seek help at emergency department. SMITA CHASE DO Apr 26, 2019 06:38
[2019-04-26 08:00] VITALS: BP 126/79
[2019-04-26] MEDS ORDERED: PANTOPRAZOLE 40 MG (PROTONIX) TAB PO SCH (09:00)
[2019-04-26] MEDS: ENOXAPARIN 40 MG/0.4 ML (LOVENOX) SYR SC SCH (11:42)
[2019-04-26 12:00] VITALS: BP 109/70
[2019-04-26 13:30] VITALS: BP 109/70
--- NOTE | 2019-04-26 13:30 | NUR ---
GIOVANNY DUKES demonstrates understanding of discharge instructions and accurately returns instructions upon questioning. Copy of Post-Discharge Instructions given to PT. GIOVANNY DUKES IS able to manage continuing needs after discharge. Patients belongings returned to PT. Patient discharged from [facility] on 04/26/19 at 1330. GIOVANNY DUKES left floor via W/C, accompanied by STAFF.
--- NOTE | 2019-04-26 14:33 | Diagnostic Imaging Report ---
PROCEDURE: US right lower extremity venous. TECHNIQUE: Multiple real-time grayscale images were obtained over the right lower extremity in various projections. Additional spectral analysis and color Doppler duplex images were also obtained. INDICATION: Right leg pain. FINDINGS: There is no evidence of right lower extremity DVT. Right lower extremity deep venous system shows normal compressibility with normal response to augmentation and Valsalva. No fluid collection or mass is detected. IMPRESSION: No evidence of right lower extremity DVT. Dictated by: Dictated on workstation # [id number]
== END 2019-04-26 13:30 | disposition home or self-care (01) | DRG 331 ==
LOC: 4TH 07:03
PROVIDERS: ADMIT Surgery; ATTEND Surgery
PROC: 0DBP0ZZ Excision of Rectum, Open Approach (ICD-10-PCS; principal; 2019-04-25)
PROC: 0DBN0ZZ Excision of Sigmoid Colon, Open Approach (ICD-10-PCS; 2019-04-25)
DX: C20 Malignant neoplasm of rectum (principal); E66.9 Obesity, unspecified; Z68.33 Body mass index [BMI] 33.0-33.9, adult; M54.5 Low back pain; R56.9 Unspecified convulsions; M19.91 Primary osteoarthritis, unspecified site
CPT/HCPCS: 86850; 86900; 86901; 87081; 94664

== ENCOUNTER 2019-05-20 08:36 | Outpatient (RCR) | payer BC ==
[~2019-05-20 08:36] MED LIST changes: +ACET-2267 PO; +HYDR-4226 PO
== END 2019-05-22 13:55 | disposition home or self-care (01) ==
LOC: ONC 08:36
PROVIDERS: ATTEND Internal Medicine Hematology & Oncology
DX: C20 Malignant neoplasm of rectum (principal)
CPT/HCPCS: 99214

== ENCOUNTER 2019-06-04 10:36 | Outpatient (CLI) | payer BC ==
[~2019-06-04] VITALS: Ht 172 cm; Wt 96.0 kg
== END 2019-06-04 12:12 | disposition home or self-care (01) ==
LOC: PREOP 10:36
PROVIDERS: ATTEND Surgery
DX: Z01.818 Encounter for other preprocedural examination (principal)

== ENCOUNTER 2019-06-05 06:58 | Day surgery (SDC) | payer BC ==
[~2019-06-05] VITALS: Ht 172 cm; Wt 96.0 kg
[~2019-06-05 06:58] MED LIST changes: +MIDAZOLAM 2 MG/2 ML (VERSED) VIAL ONE; +PROPOFOL INJECTION 50 ML IV ONE; +fentaNYL INJECTION 100 MCG/2 ML AMP ONE
[2019-06-05] MEDS ORDERED: LACTATED RINGERS 1,000 ML IV PRN (07:00)
[2019-06-05] MEDS ORDERED: ceFAZolin 2 GM IV Premixed 50 ML IV ONE (07:00)
--- OUTSIDE RECORDS SUMMARY | 2019-06-05 07:03 | XMS REPORT | Continuity of Care Document ---
Author Organization Unknown Address Unknown Phone Unavailable Allergies Active Description Code Type Severity Reaction Onset Reported/Identified Relationship to Patient Clinical Status Yes No Known Drug Allergies [id number] Drug Allergy Unknown N/A 04/15/2019 Medications There is no data. Problems Date Dx Coded Attending Type Code Diagnosis Diagnosed By 01/12/1354 ARIES CHAVIRA MD Ot C20 MALIGNANT NEOPLASM OF RECTUM 04/06/2019 ADRIANE ARTEAGA, SIERRA Verduzco Ot J10. [...] DO, SMITA B Ot K64.8 OTHER HEMORRHOIDS 04/23/2019 DELMAN DO, SMITA B Ot C18.9 MALIGNANT NEOPLASM OF COLON, UNSPECIFIED 04/23/2019 DELMAN DO, SMITA B Ot Z01.8 12 ENCOUNTER FOR PREPROCEDURAL LABORATORY E 04/26/2019 DELMAN DO, SMITA B Ot C18.9 MALIGNANT NEOPLASM OF COLON, UNSPECIFIED 04/26/2019 DELMAN DO, SMITA B Ot Z01.8 12 ENCOUNTER FOR PREPROCEDURAL LABORATORY E 04/26/2019 RENA DIOP, SMITA B Ot C20 MALIGNANT NEOPLASM OF RECTUM 04/26/2019 RENA DIOP, SMITA B Ot E66.9 OBESITY, UNSPECIFIED 04/26/2019 RENA DIOP, SMITA B Ot M19.9 1 PRIMARY OSTEOARTHRITIS, UNSPECIFIED SITE 04/26/2019 RENA DIOP, SMITA B Ot M54.5 LOW BACK PAIN 04/26/2019 RENA DIOP, SMITA B Ot R56.9 UNSPECIFIED CONVULSIONS 04/26/2019 RENA DIOP, SMITA B Ot Z68.3 3 BODY MASS INDEX (BMI) 33.0-33.9, ADULT 05/15/2019 RENA DIOP, SMITA B Ot C18.9 MALIGNANT NEOPLASM OF COLON, UNSPECIFIED 05/17/2019 YURIOOKALA , SMITA B Ot C18.9 MALIGNANT NEOPLASM OF COLON, UNSPECIFIED 05/20/2019 YURIOOKALA , SMITA B Ot C18.9 MALIGNANT NEOPLASM OF COLON, UNSPECIFIED 05/22/2019 FAN ARTEAGA, ARIES Ot C20 MALIGNANT NEOPLASM OF RECTUM Procedures Code Description Performed By Per formed On [id number] EX CISION OF SIGMOID COLON, OPEN APPROACH 04/25/2019 [id number] EX CISION OF RECTUM, OPEN APPROACH 04/25/2019 Results Test Result Range Complete blood count [...] pa isabell - 04/23/19 08:25 WRISTBAND NUMBER [id number] NRG ABO+Rh group AP NRG Blood group antibody screen NEGATIVE NR G Serum ragweed IgE antibody assay - 04/22 08:25 [id number] <1.7 0.0-5.0 Methicillin resistant Staphylococcus aur eus (MRSA) screening culture - 04/24/19 07:10 Methicillin resistant Staphylococcus aureus (MRSA) scr eening culture NEG NRG Encounters ACCT No. Visit Date/Time Discharge Status Pt. Type Provider Facility Loc./Unit Complaint [id number] 06/04/2019 10:36:00 12:12:00 DIS Outpatient SMITA CHASE DO [facility] PREOP RECTAL CANCER [id number] 05/31/2019 12:49:00 23:59:59 CLS Outpatient ROCAEL MEYER [facility] ONC [id number] 05/28/2019 10:30:00 23:59:59 CLS Preadmit ARIES CHAVIRA MD [facility] RAD MALIGNANT NEOPLASM OF R ECTUM [id number] 05/20/2019 08:36:00 13:55:00 DIS Outpatient ARIES CHAVIRA MD, V [facility] ONC [id number] 04/24/2019 07:03:00 23:59:59 CLS Inpatient RENA DO SMITA B [facility] 4TH COLON CANCER [id number] 04/23/2019 11:00:00 23:59:59 CLS Outpatient RENA DO SMITA B [facility] RAD COLON CANCER [id number] 04/23/2019 07:55:00 08:40:00 DIS Outpatient RENA DO SMITA B [facility] PREOP COLON CANCER [id number] 04/15/2019 11:17:00 13:15:00 DIS Outpatient RENA DO SMITA B [facility] ENDO BLOOD IN STOOLS [id number] 04/10/2019 05:41:00 12:02:00 DIS Outpatient RENA DO, SMITA B [facility] PREOP COLONOSCOPY [id number] 04/06/2019 19:40:00 23:15:00 DIS Emergency ADRIANE ARTEAGA, SIERRA Verduzco [facility] ER LOW BACK PAIN GOING INT O LEGS, BLOOD IN STOOL [id number] 06/05/2019 12:00:00 P EN Preadmit RENA DO SMITA B [facility] SDC RECTAL CANCER
[2019-06-05] MEDS ORDERED: HEParin (CENTRAL IV FLUSH) 500 UNIT/5 ML SYR ONE (07:17)
[2019-06-05] MEDS ORDERED: 0.9% SODIUM CHLORIDE PF INJ 20 ML VIAL ONE (07:18)
[2019-06-05] MEDS ORDERED: BUP/EPI 0.5% 1:200,000 (SENSORCAINE) 30 ML VIAL ONE (07:18)
[2019-06-05 07:20] VITALS: BP 138/105
[2019-06-05] MEDS ORDERED: CATHETER FLUSH 10 ML SYR IV PRN (07:30)
--- NOTE | 2019-06-05 08:01 | Progress Note-Pre Operative ---
Pre-Operative Progress Note H&P Reviewed The H&P was reviewed, patient examined and no changes noted. Time Seen by Provider: 07:55 Date H&P Reviewed: Jun 05, 2019 Time H&P Reviewed: 07:56 Pre-Operative Diagnosis: Rectal CA, Venous Insufficiency SMITA CHASE DO Jun 05, 2019 08:01
[2019-06-05 08:51] VITALS: BP 111/82
--- NOTE | 2019-06-05 08:54 | Progress Note-Post Operative ---
Post-Operative Progess Note Surgeon (s)/Electric Track Switch Maintainer (s) Surgeon SMITA CHASE DO Electric Track Switch Maintainer: none Pre-Operative Diagnosis Rectal CA, Venous Insufficiency Post-Operative Diagnosis same Procedure & Operative Findings Date of Procedure 06/05/19 Procedure Performed/Findings PROCEDURE: [Right]subclavian vein port placement. COMPLICATIONS: None. INDICATIONS: The patient is a 49 year old male [with Rectal CA and Venous insufficiency]. Patient understands the risks and benefits of port placement and wished to proceed with the procedure. Consent was signed on the chart. PROCEDURE: The patient was taken to the operating suite, was prepped and draped in the sterile fashion. A surgical pause was performed. Local anesthetic was then infiltrated at the clavicle and along the chest wall where the port would be placed. Using an 18 gauge finder needle the right subclavian vein was accessed. Dark nonpulsatile blood was withdrawn. The wire was inserted. Fluoroscopy assured proper placement. The needle was removed and the wire was then secured. A [#11] blade scalpel was used to make a stab incision along wire and then make an incision over the [right] chest. Cautery was used to dissect down to the pectoral fascia. A pocket was created with blunt dissection. The dilator sheath was then advanced over the wire using the Seldinger technique and then again checked position using fluoroscopy; the dilator and wire were removed. The Groshong catheter was inserted through the sheath and the sheath was then removed. The Groshong wire was removed. The catheter was then tunneled to the right chest pocket. Fluoroscopy was used to cut to length and this was then attached to the port which was then placed within the pocket. The port was then accessed without difficulty. It was then flushed with saline and then heparin. The port was then sutured down to the chest wall with a 3-0 prolene suture. Next the subcutaneous tissues were then reapproximated using 3-0 Vicryl. Flouroscopy used to check the position of the port and ensure there was no kink in the connection. Next the skin was closed with 4-0 undyed monocryl, 3 simple interrupted subcuticular stitches to close the chest incision and then one to close the stabe incision. The areas were then washed and dried. Skin Affix was placed over incision. The insertion point of the neck Skin Affix was placed over the incision. The patient tolerated the procedure well without complication and was taken to recovery room in stable condition. Sponge, instrument and needle count was correct at the end of the case. Anesthesia Type IV sedation by the CAPTAIN FIRE PREVENTION BUREAU Estimated Blood Loss Estimated blood loss (mL): scant Specimens/Packing Specimens Removed none SMITA CHASE DO Jun 05, 2019 08:54
--- NOTE | 2019-06-05 08:56 | Discharge Inst-Surgical ---
Discharge Inst-Surgical Depart Medication/Instructions New, Converted or Re-Newed RX: Other (pt can use home meds and ibuprofen) Patient Instructions Follow up Appt: Make appointment for 1 week. [phone] Instructions: No lifting greater than 20 pounds. No strenuous activity. May shower in 24 hours, no tub bath or soaking. Use incentive spirometer at home as directed. No Smoking Skin/Wound Care: May remove bandages in am. You need to leave the Dermabond on incision it will fall off on it's own. Symptoms to Report: Appetite Changes, Extremity Discoloration, Numbness/Tingling, Swelling Increased, Bleeding Excessive, Eyesight Changes, Pain Increased, Urine Color Change, Constipation(Persistent), Fever over 101 degree F, Pain/Pressure in chest, Urinating Difficulty, Cough Up/Vomit Blood, Heart Beat Irreg/Pounding, Pain/Pressure in jaw, Cramps in feet or legs, Lightheadedness, Pain/Pressure in shoulder, Diarrhea(Persistent), Memory Changes Suddenly, Questions/Concerns, Weight gain consecutive days, Dizziness/Fainting, Nausea/Vomiting, Shortness of Breath, Weight gain over 2 pounds If questions or concerns contact your physician Or seek help at emergency department. Activity Activity as Tolerated: Yes Activity Instructions: Avoid Stress to Incision Driving Instructions: You May Drive Diet Discharge Diet: No Restrictions Diet After 24 Hours: Clear Liquid if Nauseous If Any Problems/Questions/Issu: Contact Your Physician, Go to Emergency Room Skin/Wound Care Infection Signs and Symptoms: Increased Redness, Foul Odor of Wound, Increased Drainage, Skin Itchy or Has a Rash, Increased Swelling, Temperature Above 101 F Bathing Instructions: Shower Stitches/[place]/Dermabond Dis: Dermabond Ice Pack: Ice On and Off Site SMITA CHASE DO Jun 05, 2019 08:56
[2019-06-05 09:00] VITALS: BP 119/80
--- NOTE | 2019-06-05 09:13 | Diagnostic Imaging Report ---
INDICATION: Fluoroscopy for Groshong catheter placement. Fluoroscopy was provided in the OR during Groshong catheter placement. 59 seconds of fluoroscopic time was utilized. 2 images were obtained demonstrating a right sided Groshong catheter. Tip appears to overlie the SVC. IMPRESSION: Fluoroscopy for Groshong catheter placement. Dictated by: Dictated on workstation # [id number]
[2019-06-05 09:15] VITALS: BP_SYST 113; BP_DIAS 74; BP_DIAS 83
[2019-06-05 09:45] VITALS: BP 128/88
[2019-06-05 10:10] VITALS: BP 128/88
== END 2019-06-05 10:15 | disposition home or self-care (01) ==
LOC: SDC 06:58
PROVIDERS: ATTEND Surgery
DX: C20 Malignant neoplasm of rectum (principal); I87.2 Venous insufficiency (chronic) (peripheral); E66.9 Obesity, unspecified; Z68.32 Body mass index [BMI] 32.0-32.9, adult; Z79.899 Other long term (current) drug therapy; Z87.891 Personal history of nicotine dependence
CPT/HCPCS: 87081

== ENCOUNTER 2019-08-26 09:44 | Outpatient (RCR) | payer BC ==
[2019-06-05 10:50] LABS: BASOPHILS % (AUTO) 0 % (0-10); EOSINOPHILS # (AUTO) 0.1 10^3/uL (0.0-0.3); EOSINOPHILS % (AUTO) 1 % (0-10); HEMATOCRIT 39 % (40-54); HEMOGLOBIN 12.9 G/DL (13.3-17.7); LYMPHOCYTES # (AUTO) 1.6 X 10^3 (1.0-4.0); LYMPHOCYTES % (AUTO) 21 % (12-44); MEAN CORPUSCULAR HEMOGLOBIN 31 PG (25-34); MEAN CORPUSCULAR HGB CONC 33 G/DL (32-36); MEAN CORPUSCULAR VOLUME 93 FL (80-99); MONOCYTES # (AUTO) 0.4 X 10^3 (0.0-1.0); MONOCYTES % (AUTO) 5 % (0-12); NEUTROPHILS # (AUTO) 5.4 X 10^3 (1.8-7.8); NEUTROPHILS % (AUTO) 72 % (42-75); PLATELET COUNT 262 10^3/uL (130-400); RED CELL DISTRIBUTION WIDTH 12.8 % (10.0-14.5); WHITE BLOOD COUNT 7.4 10^3/uL (4.3-11.0)
[2019-06-05 11:06] LABS: ALANINE AMINOTRANSFERASE 17 U/L (0-55); ALBUMIN 3.8 GM/DL (3.2-4.5); ALKALINE PHOSPHATASE 85 U/L (40-136); BILIRUBIN,TOTAL 0.2 MG/DL (0.1-1.0); BUN/CREATININE RATIO 19; CALCIUM 8.5 MG/DL (8.5-10.1); CARBON DIOXIDE 21 MMOL/L (21-32); CHLORIDE 107 MMOL/L (98-107); CREATININE SERUM 0.78 MG/DL (0.60-1.30); GFR ESTIMATED > 60; GLUCOSE 131 MG/DL (70-105); POTASSIUM 3.6 MMOL/L (3.6-5.0); SODIUM 139 MMOL/L (135-145); TOTAL PROTEIN 6.9 GM/DL (6.4-8.2)
--- NOTE | 2019-06-05 20:44 | Anesthesia-General Post-Op ---
MAC Patient Condition Mental Status/LOC: Same as Preop Cardiovascular: Satisfactory Nausea/Vomiting: Absent Respiratory: Satisfactory Pain: Controlled Complications: Absent Post Op Complications Complications None Follow Up Care/Instructions Patient Instructions None needed. Anesthesiology Discharge Order Discharge Order Patient is doing well, no complaints, stable vital signs, no apparent adverse anesthesia problems. No complications reported per nursing. SAVAGE BENJAMIN CRNA Jun 05, 2019 20:44
[2019-08-08 10:52] LABS: BASOPHILS % (AUTO) 0 % (0-10); EOSINOPHILS # (AUTO) 0.2 10^3/uL (0.0-0.3); EOSINOPHILS % (AUTO) 4 % (0-10); HEMATOCRIT 41 % (40-54); HEMOGLOBIN 13.8 G/DL (13.3-17.7); LYMPHOCYTES # (AUTO) 1.7 X 10^3 (1.0-4.0); LYMPHOCYTES % (AUTO) 31 % (12-44); MEAN CORPUSCULAR HEMOGLOBIN 31 PG (25-34); MEAN CORPUSCULAR HGB CONC 34 G/DL (32-36); MEAN CORPUSCULAR VOLUME 93 FL (80-99); MEAN PLATELET VOLUME 9.8 FL (7.4-10.4); MONOCYTES # (AUTO) 0.4 X 10^3 (0.0-1.0); MONOCYTES % (AUTO) 7 % (0-12); NEUTROPHILS # (AUTO) 3.2 X 10^3 (1.8-7.8); NEUTROPHILS % (AUTO) 58 % (42-75); PLATELET COUNT 269 10^3/uL (130-400); RED CELL DISTRIBUTION WIDTH 12.9 % (10.0-14.5); WHITE BLOOD COUNT 5.5 10^3/uL (4.3-11.0)
[2019-08-08 11:13] LABS: ALANINE AMINOTRANSFERASE 16 U/L (0-55); ALBUMIN 3.8 GM/DL (3.2-4.5); ALKALINE PHOSPHATASE 90 U/L (40-136); BILIRUBIN,TOTAL 0.4 MG/DL (0.1-1.0); BUN/CREATININE RATIO 19; CALCIUM 8.8 MG/DL (8.5-10.1); CARBON DIOXIDE 26 MMOL/L (21-32); CHLORIDE 108 MMOL/L (98-107); CREATININE SERUM 0.78 MG/DL (0.60-1.30); GFR ESTIMATED > 60; GLUCOSE 89 MG/DL (70-105); MAGNESIUM 2.2 MG/DL (1.6-2.4); POTASSIUM 3.7 MMOL/L (3.6-5.0); SODIUM 140 MMOL/L (135-145); TOTAL PROTEIN 7.1 GM/DL (6.4-8.2)
[~2019-08-26] VITALS: Ht 172.7 cm; Wt 97.1 kg
[~2019-08-26 09:44] MED LIST changes: +D5W 500 ML IV (CANCER CTR) 500 ML IV SCH; +DARBEPOETIN 500 MCG/ML SC SCH; +FOSAPREPITANT (CANCER CENTER) 150 MG in NS (IVPB) CANCER CENTER ONLY 150 ML IV SCH; +LEUCOVORIN CALCIUM 500 MG, LEUCOVORIN CALCIUM 200 MG, LEUCOVORIN CALCIUM 100 MG in D5W ... IV SCH; -MIDAZOLAM 2 MG/2 ML (VERSED) VIAL ONE; +OXALIPLATIN 170 MG in D5W 250 ML IVPB (CANCER CTR) 250 ML IV SCH; +PALONOSETRON HCL 0.25 MG, DEXAMETHASONE INJECTION 10 MG in NS (IVPB) CANCER CENTER 50 ML IV SCH; +PALONOSETRON HCL 0.25 MG/5 ML IV SCH; -PROPOFOL INJECTION 50 ML IV ONE; -fentaNYL INJECTION 100 MCG/2 ML AMP ONE
[2019-08-26 10:05] LABS: BASOPHILS % (AUTO) 0 % (0-10); EOSINOPHILS # (AUTO) 0.2 10^3/uL (0.0-0.3); EOSINOPHILS % (AUTO) 4 % (0-10); HEMATOCRIT 38 % (40-54); LYMPHOCYTES # (AUTO) 1.5 X 10^3 (1.0-4.0); LYMPHOCYTES % (AUTO) 28 % (12-44); MEAN CORPUSCULAR HEMOGLOBIN 31 PG (25-34); MEAN CORPUSCULAR HGB CONC 34 G/DL (32-36); MEAN CORPUSCULAR VOLUME 91 FL (80-99); MEAN PLATELET VOLUME 9.2 FL (7.4-10.4); MONOCYTES # (AUTO) 0.4 X 10^3 (0.0-1.0); MONOCYTES % (AUTO) 7 % (0-12); NEUTROPHILS # (AUTO) 3.2 X 10^3 (1.8-7.8); NEUTROPHILS % (AUTO) 60 % (42-75); PLATELET COUNT 286 10^3/uL (130-400); RED CELL DISTRIBUTION WIDTH 12.8 % (10.0-14.5); WHITE BLOOD COUNT 5.3 10^3/uL (4.3-11.0)
[2019-08-26 10:26] LABS: ALANINE AMINOTRANSFERASE 24 U/L (0-55); ALBUMIN 3.7 GM/DL (3.2-4.5); ALKALINE PHOSPHATASE 79 U/L (40-136); BILIRUBIN,TOTAL 0.3 MG/DL (0.1-1.0); BUN/CREATININE RATIO 13; CALCIUM 8.4 MG/DL (8.5-10.1); CARBON DIOXIDE 21 MMOL/L (21-32); CHLORIDE 109 MMOL/L (98-107); GFR ESTIMATED > 60; GLUCOSE 105 MG/DL (70-105); POTASSIUM 3.8 MMOL/L (3.6-5.0); SODIUM 140 MMOL/L (135-145); TOTAL PROTEIN 6.4 GM/DL (6.4-8.2)
[2019-08-26] MEDS ORDERED: LEUCOVORIN CALCIUM 500 MG, LEUCOVORIN CALCIUM 100 MG in D5W 250 ML IVPB (CANCER CTR) 25... IV SCH (11:00)
== END 2019-08-29 | disposition home or self-care (01) ==
LOC: ONC 09:44
PROVIDERS: ATTEND Internal Medicine Hematology & Oncology
DX: C20 Malignant neoplasm of rectum (principal)
CPT/HCPCS: 36591; 80053; 82378; 83735; 85025; 96367; 96368; 96375; 96411; 96413; 96415; 96416; 99213; 99214

== ENCOUNTER 2019-11-25 09:36 | Outpatient (RCR) | payer BC ==
[2019-09-09 13:14] LABS: BASOPHILS % (AUTO) 1 % (0-10); EOSINOPHILS # (AUTO) 0.1 10^3/uL (0.0-0.3); EOSINOPHILS % (AUTO) 3 % (0-10); HEMATOCRIT 39 % (40-54); HEMOGLOBIN 13.4 G/DL (13.3-17.7); LYMPHOCYTES # (AUTO) 1.6 X 10^3 (1.0-4.0); LYMPHOCYTES % (AUTO) 29 % (12-44); MEAN CORPUSCULAR HGB CONC 34 G/DL (32-36); MEAN CORPUSCULAR VOLUME 92 FL (80-99); MEAN PLATELET VOLUME 9.5 FL (7.4-10.4); MONOCYTES # (AUTO) 0.5 X 10^3 (0.0-1.0); MONOCYTES % (AUTO) 9 % (0-12); NEUTROPHILS # (AUTO) 3.3 X 10^3 (1.8-7.8); NEUTROPHILS % (AUTO) 60 % (42-75); PLATELET COUNT 224 10^3/uL (130-400); WHITE BLOOD COUNT 5.5 10^3/uL (4.3-11.0)
[2019-09-09 13:15] LABS: MEAN CORPUSCULAR HEMOGLOBIN 31 PG (25-34)
[2019-09-09 13:35] LABS: ALANINE AMINOTRANSFERASE 24 U/L (0-55); ALBUMIN 3.8 GM/DL (3.2-4.5); ALKALINE PHOSPHATASE 83 U/L (40-136); BILIRUBIN,TOTAL 0.4 MG/DL (0.1-1.0); BUN/CREATININE RATIO 18; CALCIUM 8.5 MG/DL (8.5-10.1); CARBON DIOXIDE 23 MMOL/L (21-32); CHLORIDE 109 MMOL/L (98-107); CREATININE SERUM 0.82 MG/DL (0.60-1.30); GFR ESTIMATED > 60; GLUCOSE 107 MG/DL (70-105); MAGNESIUM 1.9 MG/DL (1.6-2.4); POTASSIUM 3.8 MMOL/L (3.6-5.0); SODIUM 141 MMOL/L (135-145); TOTAL PROTEIN 6.7 GM/DL (6.4-8.2)
[2019-09-24 15:42] LABS: BASOPHILS % (AUTO) 0 % (0-10); EOSINOPHILS # (AUTO) 0.3 10^3/uL (0.0-0.3); EOSINOPHILS % (AUTO) 5 % (0-10); HEMATOCRIT 41 % (40-54); HEMOGLOBIN 13.8 G/DL (13.3-17.7); LYMPHOCYTES # (AUTO) 1.9 X 10^3 (1.0-4.0); LYMPHOCYTES % (AUTO) 28 % (12-44); MEAN CORPUSCULAR HEMOGLOBIN 31 PG (25-34); MEAN CORPUSCULAR HGB CONC 34 G/DL (32-36); MEAN CORPUSCULAR VOLUME 93 FL (80-99); MEAN PLATELET VOLUME 9.3 FL (7.4-10.4); MONOCYTES # (AUTO) 0.7 X 10^3 (0.0-1.0); MONOCYTES % (AUTO) 10 % (0-12); NEUTROPHILS # (AUTO) 4.1 X 10^3 (1.8-7.8); NEUTROPHILS % (AUTO) 58 % (42-75); PLATELET COUNT 230 10^3/uL (130-400)
[2019-09-24 15:55] LABS: ALANINE AMINOTRANSFERASE 27 U/L (0-55); ALKALINE PHOSPHATASE 96 U/L (40-136); BILIRUBIN,TOTAL 0.5 MG/DL (0.1-1.0); BUN/CREATININE RATIO 19; CALCIUM 8.9 MG/DL (8.5-10.1); CARBON DIOXIDE 24 MMOL/L (21-32); CHLORIDE 105 MMOL/L (98-107); CREATININE SERUM 0.95 MG/DL (0.60-1.30); GFR ESTIMATED > 60; GLUCOSE 107 MG/DL (70-105); MAGNESIUM 2.3 MG/DL (1.6-2.4); POTASSIUM 3.7 MMOL/L (3.6-5.0); SODIUM 139 MMOL/L (135-145); TOTAL PROTEIN 7.2 GM/DL (6.4-8.2)
[2019-10-16 13:35] LABS: BASOPHILS % (AUTO) 0 % (0-10); EOSINOPHILS # (AUTO) 0.2 10^3/uL (0.0-0.3); EOSINOPHILS % (AUTO) 2 % (0-10); HEMATOCRIT 40 % (40-54); HEMOGLOBIN 13.6 G/DL (13.3-17.7); LYMPHOCYTES % (AUTO) 14 % (12-44); MEAN CORPUSCULAR HEMOGLOBIN 32 PG (25-34); MEAN CORPUSCULAR HGB CONC 34 G/DL (32-36); MEAN CORPUSCULAR VOLUME 94 FL (80-99); MEAN PLATELET VOLUME 9.6 FL (7.4-10.4); MONOCYTES # (AUTO) 0.4 X 10^3 (0.0-1.0); MONOCYTES % (AUTO) 6 % (0-12); NEUTROPHILS # (AUTO) 5.4 X 10^3 (1.8-7.8); NEUTROPHILS % (AUTO) 77 % (42-75); PLATELET COUNT 234 10^3/uL (130-400); WHITE BLOOD COUNT 6.9 10^3/uL (4.3-11.0)
[2019-10-16 13:51] LABS: BUN/CREATININE RATIO 21; CARBON DIOXIDE 24 MMOL/L (21-32); CHLORIDE 105 MMOL/L (98-107); CREATININE SERUM 0.91 MG/DL (0.60-1.30); POTASSIUM 4.1 MMOL/L (3.6-5.0); SODIUM 138 MMOL/L (135-145)
[2019-10-16 13:52] LABS: ALANINE AMINOTRANSFERASE 16 U/L (0-55); ALBUMIN 4.1 GM/DL (3.2-4.5); ALKALINE PHOSPHATASE 83 U/L (40-136); BILIRUBIN,TOTAL 0.5 MG/DL (0.1-1.0); CALCIUM 9.1 MG/DL (8.5-10.1); GFR ESTIMATED > 60; GLUCOSE 122 MG/DL (70-105); TOTAL PROTEIN 7.1 GM/DL (6.4-8.2)
[2019-11-14 10:20] LABS: BASOPHILS % (AUTO) 1 % (0-10); EOSINOPHILS # (AUTO) 0.4 10^3/uL (0.0-0.3); EOSINOPHILS % (AUTO) 9 % (0-10); HEMATOCRIT 38 % (40-54); HEMOGLOBIN 13.1 g/dL (13.3-17.7); LYMPHOCYTES # (AUTO) 0.4 10^3/uL (1.0-4.0); LYMPHOCYTES % (AUTO) 10 % (12-44); MEAN CORPUSCULAR HEMOGLOBIN 33 pg (25-34); MEAN CORPUSCULAR HGB CONC 35 g/dL (32-36); MEAN CORPUSCULAR VOLUME 96 fL (80-99); MEAN PLATELET VOLUME 9.2 fL (9.0-12.2); MONOCYTES # (AUTO) 0.4 10^3/uL (0.0-1.0); MONOCYTES % (AUTO) 9 % (0-12); NEUTROPHILS # (AUTO) 3.1 10^3/uL (1.8-7.8); NEUTROPHILS % (AUTO) 72 % (42-75); PLATELET COUNT 219 10^3/uL (130-400); WHITE BLOOD COUNT 4.3 10^3/uL (4.3-11.0)
[2019-11-14 10:40] LABS: ALANINE AMINOTRANSFERASE 19 U/L (0-55); ALBUMIN 3.7 GM/DL (3.2-4.5); ALKALINE PHOSPHATASE 76 U/L (40-136); BILIRUBIN,TOTAL 0.5 MG/DL (0.1-1.0); BUN/CREATININE RATIO 15; CALCIUM 8.5 MG/DL (8.5-10.1); CARBON DIOXIDE 25 MMOL/L (21-32); CHLORIDE 108 MMOL/L (98-107); CREATININE SERUM 0.91 MG/DL (0.60-1.30); GFR ESTIMATED > 60; GLUCOSE 103 MG/DL (70-105); POTASSIUM 4.1 MMOL/L (3.6-5.0); SODIUM 140 MMOL/L (135-145); TOTAL PROTEIN 6.6 GM/DL (6.4-8.2)
[2019-11-20 09:38] LABS: BASOPHILS % (AUTO) 1 % (0-10); EOSINOPHILS # (AUTO) 0.3 10^3/uL (0.0-0.3); EOSINOPHILS % (AUTO) 4 % (0-10); HEMATOCRIT 40 % (40-54); HEMOGLOBIN 13.7 g/dL (13.3-17.7); LYMPHOCYTES # (AUTO) 0.5 10^3/uL (1.0-4.0); LYMPHOCYTES % (AUTO) 9 % (12-44); MEAN CORPUSCULAR HEMOGLOBIN 34 pg (25-34); MEAN CORPUSCULAR HGB CONC 34 g/dL (32-36); MEAN CORPUSCULAR VOLUME 98 fL (80-99); MEAN PLATELET VOLUME 9.3 fL (9.0-12.2); MONOCYTES # (AUTO) 0.5 10^3/uL (0.0-1.0); MONOCYTES % (AUTO) 10 % (0-12); NEUTROPHILS # (AUTO) 4.3 10^3/uL (1.8-7.8); NEUTROPHILS % (AUTO) 76 % (42-75); PLATELET COUNT 222 10^3/uL (130-400); WHITE BLOOD COUNT 5.7 10^3/uL (4.3-11.0)
[2019-11-20 09:56] LABS: BUN/CREATININE RATIO 22; CALCIUM 8.6 MG/DL (8.5-10.1); CARBON DIOXIDE 22 MMOL/L (21-32); CHLORIDE 105 MMOL/L (98-107); CREATININE SERUM 0.83 MG/DL (0.60-1.30); GFR ESTIMATED > 60; GLUCOSE 103 MG/DL (70-105); POTASSIUM 3.5 MMOL/L (3.6-5.0); SODIUM 140 MMOL/L (135-145)
[~2019-11-25 09:36] MED LIST changes: -DARBEPOETIN 500 MCG/ML SC SCH; +LEUCOVORIN CALCIUM 500 MG, LEUCOVORIN CALCIUM 100 MG in D5W 250 ML IVPB (CANCER CTR) 25... IV SCH; -LEUCOVORIN CALCIUM 500 MG, LEUCOVORIN CALCIUM 200 MG, LEUCOVORIN CALCIUM 100 MG in D5W ... IV SCH; -PALONOSETRON HCL 0.25 MG, DEXAMETHASONE INJECTION 10 MG in NS (IVPB) CANCER CENTER 50 ML IV SCH; -PALONOSETRON HCL 0.25 MG/5 ML IV SCH
== END 2019-12-08 | disposition home or self-care (01) ==
LOC: ONC 09:36
PROVIDERS: ATTEND Internal Medicine Hematology & Oncology
DX: Z51.11 Encounter for antineoplastic chemotherapy (principal); C20 Malignant neoplasm of rectum
CPT/HCPCS: 80053; 83735; 85025; 96367; 96368; 96375; 96411; 96413; 96521; G0463; 36591; 77300; 77301; 77307; 77334; 77336; 77338; 77385; 77386; 77417; 77470; 80048; 99205; 99213

== ENCOUNTER 2020-02-11 15:21 | Outpatient (RCR) | payer BC ==
[2019-12-24 14:39] LABS: BASOPHILS % (AUTO) 1 % (0-10); EOSINOPHILS # (AUTO) 0.3 10^3/uL (0.0-0.3); EOSINOPHILS % (AUTO) 6 % (0-10); HEMATOCRIT 39 % (40-54); HEMOGLOBIN 13.4 g/dL (13.3-17.7); LYMPHOCYTES # (AUTO) 0.6 10^3/uL (1.0-4.0); LYMPHOCYTES % (AUTO) 13 % (12-44); MEAN CORPUSCULAR HEMOGLOBIN 34 pg (25-34); MEAN CORPUSCULAR HGB CONC 34 g/dL (32-36); MEAN CORPUSCULAR VOLUME 99 fL (80-99); MEAN PLATELET VOLUME 9.6 fL (9.0-12.2); MONOCYTES # (AUTO) 0.4 10^3/uL (0.0-1.0); MONOCYTES % (AUTO) 8 % (0-12); NEUTROPHILS # (AUTO) 3.4 10^3/uL (1.8-7.8); NEUTROPHILS % (AUTO) 72 % (42-75); PLATELET COUNT 254 10^3/uL (130-400); WHITE BLOOD COUNT 4.8 10^3/uL (4.3-11.0)
[2019-12-24 15:00] LABS: ALANINE AMINOTRANSFERASE 20 U/L (0-55); ALKALINE PHOSPHATASE 80 U/L (40-136); BILIRUBIN,TOTAL 0.4 MG/DL (0.1-1.0); BUN/CREATININE RATIO 22; CALCIUM 8.8 MG/DL (8.5-10.1); CARBON DIOXIDE 24 MMOL/L (21-32); CHLORIDE 105 MMOL/L (98-107); CREATININE SERUM 0.92 MG/DL (0.60-1.30); GFR ESTIMATED > 60; GLUCOSE 118 MG/DL (70-105); MAGNESIUM 1.9 MG/DL (1.6-2.4); POTASSIUM 3.8 MMOL/L (3.6-5.0); SODIUM 137 MMOL/L (135-145); TOTAL PROTEIN 7.2 GM/DL (6.4-8.2)
[2020-01-13 10:22] LABS: BASOPHILS % (AUTO) 1 % (0-10); EOSINOPHILS # (AUTO) 0.2 10^3/uL (0.0-0.3); EOSINOPHILS % (AUTO) 4 % (0-10); HEMATOCRIT 40 % (40-54); HEMOGLOBIN 13.4 g/dL (13.3-17.7); LYMPHOCYTES # (AUTO) 0.5 10^3/uL (1.0-4.0); LYMPHOCYTES % (AUTO) 12 % (12-44); MEAN CORPUSCULAR HEMOGLOBIN 33 pg (25-34); MEAN CORPUSCULAR HGB CONC 34 g/dL (32-36); MEAN CORPUSCULAR VOLUME 99 fL (80-99); MEAN PLATELET VOLUME 9.4 fL (9.0-12.2); MONOCYTES # (AUTO) 0.4 10^3/uL (0.0-1.0); MONOCYTES % (AUTO) 9 % (0-12); NEUTROPHILS # (AUTO) 3.2 10^3/uL (1.8-7.8); NEUTROPHILS % (AUTO) 75 % (42-75); PLATELET COUNT 239 10^3/uL (130-400); WHITE BLOOD COUNT 4.2 10^3/uL (4.3-11.0)
[2020-01-13 10:45] LABS: ALANINE AMINOTRANSFERASE 16 U/L (0-55); ALBUMIN 3.9 GM/DL (3.2-4.5); ALKALINE PHOSPHATASE 88 U/L (40-136); BILIRUBIN,TOTAL 0.4 MG/DL (0.1-1.0); BUN/CREATININE RATIO 19; CALCIUM 8.6 MG/DL (8.5-10.1); CARBON DIOXIDE 24 MMOL/L (21-32); CHLORIDE 108 MMOL/L (98-107); CREATININE SERUM 0.81 MG/DL (0.60-1.30); GFR ESTIMATED > 60; GLUCOSE 104 MG/DL (70-105); SODIUM 140 MMOL/L (135-145); TOTAL PROTEIN 6.9 GM/DL (6.4-8.2)
[2020-01-20 11:07] LABS: BASOPHILS % (AUTO) 1 % (0-10); EOSINOPHILS # (AUTO) 0.2 10^3/uL (0.0-0.3); EOSINOPHILS % (AUTO) 4 % (0-10); HEMATOCRIT 40 % (40-54); HEMOGLOBIN 13.5 g/dL (13.3-17.7); LYMPHOCYTES # (AUTO) 0.6 10^3/uL (1.0-4.0); LYMPHOCYTES % (AUTO) 18 % (12-44); MEAN CORPUSCULAR HEMOGLOBIN 34 pg (25-34); MEAN CORPUSCULAR HGB CONC 34 g/dL (32-36); MEAN CORPUSCULAR VOLUME 100 fL (80-99); MEAN PLATELET VOLUME 9.7 fL (9.0-12.2); MONOCYTES # (AUTO) 0.5 10^3/uL (0.0-1.0); MONOCYTES % (AUTO) 14 % (0-12); NEUTROPHILS # (AUTO) 2.2 10^3/uL (1.8-7.8); NEUTROPHILS % (AUTO) 62 % (42-75); PLATELET COUNT 252 10^3/uL (130-400); WHITE BLOOD COUNT 3.4 10^3/uL (4.3-11.0)
[2020-01-20 11:22] LABS: BUN/CREATININE RATIO 18; CALCIUM 8.6 MG/DL (8.5-10.1); CARBON DIOXIDE 25 MMOL/L (21-32); CHLORIDE 107 MMOL/L (98-107); CREATININE SERUM 0.83 MG/DL (0.60-1.30); GFR ESTIMATED > 60; GLUCOSE 92 MG/DL (70-105); POTASSIUM 3.8 MMOL/L (3.6-5.0); SODIUM 141 MMOL/L (135-145)
[2020-01-27 10:57] LABS: BASOPHILS % (AUTO) 1 % (0-10); EOSINOPHILS # (AUTO) 0.2 10^3/uL (0.0-0.3); EOSINOPHILS % (AUTO) 3 % (0-10); HEMATOCRIT 41 % (40-54); HEMOGLOBIN 13.3 g/dL (13.3-17.7); LYMPHOCYTES # (AUTO) 0.5 10^3/uL (1.0-4.0); LYMPHOCYTES % (AUTO) 12 % (12-44); MEAN CORPUSCULAR HEMOGLOBIN 33 pg (25-34); MEAN CORPUSCULAR HGB CONC 33 g/dL (32-36); MEAN CORPUSCULAR VOLUME 102 fL (80-99); MEAN PLATELET VOLUME 9.5 fL (9.0-12.2); MONOCYTES # (AUTO) 0.5 10^3/uL (0.0-1.0); MONOCYTES % (AUTO) 11 % (0-12); NEUTROPHILS # (AUTO) 3.2 10^3/uL (1.8-7.8); NEUTROPHILS % (AUTO) 73 % (42-75); PLATELET COUNT 208 10^3/uL (130-400); WHITE BLOOD COUNT 4.4 10^3/uL (4.3-11.0)
[2020-01-27 11:23] LABS: ALANINE AMINOTRANSFERASE 18 U/L (0-55); ALBUMIN 3.9 GM/DL (3.2-4.5); ALKALINE PHOSPHATASE 86 U/L (40-136); BILIRUBIN,TOTAL 0.5 MG/DL (0.1-1.0); BUN/CREATININE RATIO 22; CALCIUM 8.4 MG/DL (8.5-10.1); CARBON DIOXIDE 22 MMOL/L (21-32); CHLORIDE 107 MMOL/L (98-107); CREATININE SERUM 0.81 MG/DL (0.60-1.30); GFR ESTIMATED > 60; GLUCOSE 99 MG/DL (70-105); SODIUM 136 MMOL/L (135-145); TOTAL PROTEIN 6.9 GM/DL (6.4-8.2)
[2020-02-11 13:34] LABS: BASOPHILS % (AUTO) 1 % (0-10); EOSINOPHILS # (AUTO) 0.1 10^3/uL (0.0-0.3); EOSINOPHILS % (AUTO) 2 % (0-10); HEMATOCRIT 38 % (40-54); HEMOGLOBIN 13.3 g/dL (13.3-17.7); LYMPHOCYTES # (AUTO) 0.6 10^3/uL (1.0-4.0); LYMPHOCYTES % (AUTO) 12 % (12-44); MEAN CORPUSCULAR HEMOGLOBIN 34 pg (25-34); MEAN CORPUSCULAR HGB CONC 35 g/dL (32-36); MEAN CORPUSCULAR VOLUME 99 fL (80-99); MEAN PLATELET VOLUME 9.5 fL (9.0-12.2); MONOCYTES # (AUTO) 0.4 10^3/uL (0.0-1.0); MONOCYTES % (AUTO) 8 % (0-12); NEUTROPHILS # (AUTO) 3.9 10^3/uL (1.8-7.8); NEUTROPHILS % (AUTO) 78 % (42-75); PLATELET COUNT 176 10^3/uL (130-400)
[2020-02-11 14:09] LABS: ALANINE AMINOTRANSFERASE 19 U/L (0-55); ALBUMIN 3.9 GM/DL (3.2-4.5); ALKALINE PHOSPHATASE 95 U/L (40-136); BILIRUBIN,TOTAL 0.6 MG/DL (0.1-1.0); BUN/CREATININE RATIO 20; CALCIUM 8.7 MG/DL (8.5-10.1); CARBON DIOXIDE 28 MMOL/L (21-32); CHLORIDE 106 MMOL/L (98-107); CREATININE SERUM 0.86 MG/DL (0.60-1.30); GFR ESTIMATED > 60; GLUCOSE 163 MG/DL (70-105); POTASSIUM 3.6 MMOL/L (3.6-5.0); SODIUM 138 MMOL/L (135-145); TOTAL PROTEIN 7.2 GM/DL (6.4-8.2)
== END 2020-02-21 14:40 | disposition home or self-care (01) ==
LOC: ONC 15:21
PROVIDERS: ATTEND Internal Medicine Hematology & Oncology
DX: C20 Malignant neoplasm of rectum (principal); Z98.890 Other specified postprocedural states
CPT/HCPCS: 80053; 83735; 85025; G0463; 36591; 80048; 96367; 96368; 96375; 96411; 96413; 96415

== ENCOUNTER 2020-03-04 11:24 | Outpatient (RCR) | payer BC ==
[~2020-03-04] VITALS: Ht 172.7 cm; Wt 98.5 kg
[~2020-03-04 11:24] MED LIST changes: -D5W 500 ML IV (CANCER CTR) 500 ML IV SCH; -FOSAPREPITANT (CANCER CENTER) 150 MG in NS (IVPB) CANCER CENTER ONLY 150 ML IV SCH; -LEUCOVORIN CALCIUM 500 MG, LEUCOVORIN CALCIUM 100 MG in D5W 250 ML IVPB (CANCER CTR) 25... IV SCH; -OXALIPLATIN 170 MG in D5W 250 ML IVPB (CANCER CTR) 250 ML IV SCH
== END 2020-03-04 14:03 | disposition home or self-care (01) ==
LOC: PREOP 11:24
PROVIDERS: ATTEND Surgery
DX: Z01.818 Encounter for other preprocedural examination (principal)

== ENCOUNTER → 2020-03-06 | Outpatient (CLI) | payer BC | LOC: LAB FS 10:00 | PROVIDERS: ATTEND Surgery | DX: Z01.818 Encounter for other preprocedural examination (principal); K62.5 Hemorrhage of anus and rectum; Z20.822 Contact with and (suspected) exposure to COVID-19 | CPT/HCPCS: 87635 ==

== ENCOUNTER 2020-03-09 10:02 | Day surgery (SDC) | payer BC ==
[2020-03-09] VITALS (8 sets, daily range): BP systolic 102–119; BP diastolic 69–87
[~2020-03-09] VITALS: Ht 172.7 cm; Wt 98.5 kg
[2020-03-09] MEDS ORDERED: ceFAZolin 2 GM IV Premixed 50 ML IV ONE (10:15)
[2020-03-09] MEDS ORDERED: LACTATED RINGERS 1,000 ML IV PRN (10:45)
--- NOTE | 2020-03-09 11:00 | Progress Note-Pre Operative ---
Pre-Operative Progress Note H&P Reviewed The H&P was reviewed, patient examined and no changes noted. Time Seen by Provider: 10:57 Date H&P Reviewed: Mar 09, 2020 Time H&P Reviewed: 10:57 Pre-Operative Diagnosis: Venous Insufficiency, Hx Rectal CA, Rectal bleed SMITA CHASE DO Mar 09, 2020 11:00
[2020-03-09] MEDS ORDERED: MIDAZOLAM 2 MG/2 ML (VERSED) VIAL ONE (11:05)
[2020-03-09] MEDS ORDERED: LIDOCAINE/EPI 1%-1:100,000 (XYLOCAINE) 50 ML ONE (11:08)
[2020-03-09] MEDS ORDERED: PROPOFOL INJECTION 50 ML IV ONE (11:08)
--- NOTE | 2020-03-09 11:44 | Progress Note-Post Operative ---
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
--- NOTE | 2020-03-09 11:45 | Endoscopy Discharge Instruct ---
Endo Procedure/Findings Findings 1.: Other Findings (Arterio-Venous Malformations) 2.: Internal Hemorrhoids Discharge Instructions - Activity: You might feel a little sleepy until tomorrow. This is due to the medicine you received to relax you. Until tomorrow, you should: NOT drive a car, operate machinery or power tools. NOT drink any alcoholic beverages. NOT make any important decisions or sign importortant papers. Do not return to work until tomorrow, unless otherwise instructed. Resume previous activities tomorrow. Diet: Start by taking liquids. If you tolerate liquids, advance to solid food. 1.: Colonoscopy in 1 year Notify Physician - If you experience excessive bleeding, unusual abdominal pain, fever, or chest pain, contact your doctor immediately. SMITA CHASE DO Mar 09, 2020 11:45
--- NOTE | 2020-03-09 11:45 | Discharge Inst-Surgical ---
Discharge Inst-Surgical Depart Medication/Instructions New, Converted or Re-Newed RX: Other (take home meds) Patient Instructions Follow up Appt: Make appointment for 1 week. [phone] Instructions: No lifting greater than 20 pounds.a No strenuous activity. May shower in 24 hours, no tub bath or soaking. Use incentive spirometer at home as directed. No Smoking Skin/Wound Care: May remove bandages in am. You need to leave the Dermabond on incision it will fall off on it's own. Symptoms to Report: Appetite Changes, Extremity Discoloration, Numbness/Tingling, Swelling Increased, Bleeding Excessive, Eyesight Changes, Pain Increased, Urine Color Change, Constipation(Persistent), Fever over 101 degree F, Pain/Pressure in chest, Urinating Difficulty, Cough Up/Vomit Blood, Heart Beat Irreg/Pounding, Pain/Pressure in jaw, Cramps in feet or legs, Lightheadedness, Pain/Pressure in shoulder, Diarrhea(Persistent), Memory Changes Suddenly, Questions/Concerns, Weight gain consecutive days, Dizziness/Fainting, Nausea/Vomiting, Shortness of Breath, Weight gain over 2 pounds If questions or concerns contact your physician Or seek help at emergency department. Activity Activity as Tolerated: Yes Activity Instructions: Avoid Stress to Incision Driving Instructions: No Driving/Refer to Dr. Ross Discharge Diet: No Restrictions Diet After 24 Hours: Clear Liquid if Nauseous If Any Problems/Questions/Issu: Contact Your Physician, Go to Emergency Room Skin/Wound Care Infection Signs and Symptoms: Increased Redness, Foul Odor of Wound, Increased Drainage, Skin Itchy or Has a Rash, Increased Swelling, Temperature Above 101 F Bathing Instructions: Shower Stitches/[place]/Dermabond Dis: SMITA Moran DO Mar 09, 2020 11:45
--- NOTE | 2020-03-09 11:54 | Anesthesia-General Post-Op ---
MAC Patient Condition Mental Status/LOC: Same as Preop Cardiovascular: Satisfactory Nausea/Vomiting: Absent Respiratory: Satisfactory Pain: Controlled Complications: Absent Post Op Complications Complications None Follow Up Care/Instructions Patient Instructions None needed. Anesthesiology Discharge Order Discharge Order Patient is doing well, no complaints, stable vital signs, no apparent adverse anesthesia problems. No complications reported per nursing. LOYDA HERNANDEZ CRNA Mar 09, 2020 11:54
--- NOTE | 2020-03-09 14:39 | Operative Report ---
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 COMPLICATIONS: None. INDICATIONS: The patient is a 50 year-old male who had a port previously placed. Patient does not want any more chemotherapy and wants the port removed. The patient was explained risk and benefits of the procedure and wished to proceed with procedure. Consent was signed on the chart. PROCEDURE: The patient was taken to the operating suite and was prepped and draped in sterile fashion. A surgical pause was performed. Local anesthetic was infiltrated to the area around the port. A number 15 blade scalpel was used to make an incision. Cautery was used to dissect down to the port which was then grasped and then dissected around. The catheter was removed in its entirety. The port was then able to be dissected out of the pocket and elevated. The wound was then irrigated with copious amounts of irrigation. Hemostasis had been achieved. The subcutaneous tissues were then reapproximated using 3-0 Vicryl. Skin was then closed using 4-0 Vicryl in a running fashion. The area was then washed and dried and Skin Affix placed over the incision. The patient tolerated the procedure well without complication and was taken to recovery room in stable condition. Findings of the Procedure port removed Allergies and Home Medications Allergies Coded Allergies: tamsulosin (Verified Allergy, Intermediate, fever, redness, 03/09/20) Home Medications No Active Prescriptions or Reported Meds Patient Home Medication List Home Medication List Reviewed: Yes SMTIA CHASE DO Mar 09, 2020 14:39
--- NOTE | 2020-03-09 23:28 | OPERATIVE REPORT ---
DATE OF SERVICE: 03/09/2020 PREOPERATIVE DIAGNOSES: 1. Rectal bleed. 2. History of rectal cancer. POSTOPERATIVE DIAGNOSES: 1. Rectal bleed. 2. History of rectal cancer. 3. AVM and internal hemorrhoids. PROCEDURE: Colonoscopy. SURGEON: Juan J Livingston DO TOOL CHECKER: ANNIE Yanes. ANESTHESIA: IV sedation by the APPLICATIONS SYSTEMS ANALYST. SPECIMENS: None. BLOOD LOSS: None. FLUIDS: Per anesthesia. POSTOPERATIVE CONDITION: Stable. INDICATION FOR PROCEDURE: The patient is a 50-year-old male who has a history of rectal cancer. He has been having some rectal bleeding lately and needed a workup. FINDINGS: The patient had some AVMs seen in the colon. There was a little bit of raw area at the anastomosis, but it looked fine. No other obvious pathology. PROCEDURE NOTE: After informed consent was obtained, the patient was in the OR, had already had a previous procedure and started the scope, pushed in all the way to about 120 cm, able to get to the end, took a picture of appendiceal orifice, noted the ileocecal valve, then slowly withdrew the scope insufflating the circumferential wall, looking at the cecum and the ascending colon up to the hepatic flexure, then down the transverse colon, splenic flexure, into the descending colon where we saw the AVMs. Also noted some suture and could then see the anastomosis, little bit of rawness here, but did not see any masses and at this point I did note some internal hemorrhoids on the way out, some pretty large veins in the rectal vault as well, but removed the scope. The patient tolerated the procedure. He was transferred to recovery room in stable condition. Job ID: [id number] DocumentID: [id number] Dictated Date: 03/09/2020 14:57:52 Batch Mixer Operator Date: 03/09/2020 23:26:36 Dictated By: JUAN J LIVINGSTON DO
== END 2020-03-09 13:05 | disposition home or self-care (01) ==
LOC: SDC 10:02
PROVIDERS: ATTEND Surgery
DX: K62.5 Hemorrhage of anus and rectum (principal); K64.8 Other hemorrhoids; Q27.30 Arteriovenous malformation, site unspecified; I87.2 Venous insufficiency (chronic) (peripheral); E66.9 Obesity, unspecified; Z68.33 Body mass index [BMI] 33.0-33.9, adult; Z79.899 Other long term (current) drug therapy; Z88.8 Allergy status to other drugs, medicaments and biological substances; Z92.21 Personal history of antineoplastic chemotherapy; Z85.038 Personal history of other malignant neoplasm of large intestine; Z85.048 Personal history of other malignant neoplasm of rectum, rectosigmoid junction, and anus
CPT/HCPCS: 87081

== ENCOUNTER 2020-04-19 16:36 | Emergency (ER) | payer BC ==
[~2020-04-19] VITALS: Ht 172.7 cm; Wt 97.5 kg
[2020-04-19] MEDS ORDERED: TETANUS,DIPTH,PERTUSS P/F (BOOSTRIX) 0.5 ML VIAL IM ONE (17:15)
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
[2020-04-19] MEDS ORDERED: DOXY100T2 PO (17:45)
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
[2020-04-19 18:26] VITALS: BP 135/87
[2020-04-19] MEDS ORDERED: DOXYCYCLINE 100 MG (VIBRAMYCIN) TABLET PO SCH (18:30)
== END 2020-04-19 18:26 | disposition home or self-care (01) ==
LOC: EDUNIT# 16:36 → ER 16:38
DX: S01.81XA Laceration without foreign body of other part of head, initial encounter (principal); Z85.038 Personal history of other malignant neoplasm of large intestine; Z88.8 Allergy status to other drugs, medicaments and biological substances; Z23 Encounter for immunization; W23.0XXA Caught, crushed, jammed, or pinched between moving objects, initial encounter
CPT/HCPCS: 70250; 90715

== ENCOUNTER 2020-05-27 14:59 | Outpatient (RCR) | payer BC ==
[2020-03-04 09:41] LABS: BASOPHILS % (AUTO) 1 % (0-10); EOSINOPHILS # (AUTO) 0.1 10^3/uL (0.0-0.3); EOSINOPHILS % (AUTO) 3 % (0-10); HEMATOCRIT 41 % (40-54); HEMOGLOBIN 13.9 g/dL (13.3-17.7); LYMPHOCYTES # (AUTO) 0.6 10^3/uL (1.0-4.0); LYMPHOCYTES % (AUTO) 17 % (12-44); MEAN CORPUSCULAR HEMOGLOBIN 34 pg (25-34); MEAN CORPUSCULAR HGB CONC 34 g/dL (32-36); MEAN CORPUSCULAR VOLUME 99 fL (80-99); MEAN PLATELET VOLUME 9.3 fL (9.0-12.2); MONOCYTES # (AUTO) 0.5 10^3/uL (0.0-1.0); MONOCYTES % (AUTO) 13 % (0-12); NEUTROPHILS # (AUTO) 2.3 10^3/uL (1.8-7.8); NEUTROPHILS % (AUTO) 66 % (42-75); PLATELET COUNT 225 10^3/uL (130-400); WHITE BLOOD COUNT 3.4 10^3/uL (4.3-11.0)
[2020-03-04 10:15] LABS: ALANINE AMINOTRANSFERASE 21 U/L (0-55); ALBUMIN 3.9 GM/DL (3.2-4.5); ALKALINE PHOSPHATASE 93 U/L (40-136); BILIRUBIN,TOTAL 0.4 MG/DL (0.1-1.0); BUN/CREATININE RATIO 20; CALCIUM 8.7 MG/DL (8.5-10.1); CARBON DIOXIDE 23 MMOL/L (21-32); CHLORIDE 106 MMOL/L (98-107); CREATININE SERUM 0.87 MG/DL (0.60-1.30); GFR ESTIMATED > 60; GLUCOSE 65 MG/DL (70-105); MAGNESIUM 1.9 MG/DL (1.6-2.4); POTASSIUM 4.1 MMOL/L (3.6-5.0); SODIUM 139 MMOL/L (135-145)
[~2020-05-27 14:59] MED LIST changes: +DOXY100T2 PO
[2020-05-27 15:15] LABS: BASOPHILS % (AUTO) 1 % (0-10); EOSINOPHILS # (AUTO) 0.2 10^3/uL (0.0-0.3); EOSINOPHILS % (AUTO) 3 % (0-10); HEMATOCRIT 43 % (40-54); HEMOGLOBIN 14.2 g/dL (13.3-17.7); LYMPHOCYTES # (AUTO) 0.9 10^3/uL (1.0-4.0); LYMPHOCYTES % (AUTO) 14 % (12-44); MEAN CORPUSCULAR HEMOGLOBIN 32 pg (25-34); MEAN CORPUSCULAR HGB CONC 33 g/dL (32-36); MEAN CORPUSCULAR VOLUME 97 fL (80-99); MEAN PLATELET VOLUME 9.5 fL (9.0-12.2); MONOCYTES # (AUTO) 0.5 10^3/uL (0.0-1.0); MONOCYTES % (AUTO) 7 % (0-12); NEUTROPHILS # (AUTO) 4.6 10^3/uL (1.8-7.8); NEUTROPHILS % (AUTO) 74 % (42-75); PLATELET COUNT 271 10^3/uL (130-400); WHITE BLOOD COUNT 6.2 10^3/uL (4.3-11.0)
[2020-05-27 15:36] LABS: CARBON DIOXIDE 27 MMOL/L (21-32); CHLORIDE 106 MMOL/L (98-107); POTASSIUM 3.7 MMOL/L (3.6-5.0); SODIUM 139 MMOL/L (135-145)
[2020-05-27 15:37] LABS: ALANINE AMINOTRANSFERASE 22 U/L (0-55); ALBUMIN 3.9 GM/DL (3.2-4.5); ALKALINE PHOSPHATASE 95 U/L (40-136); BILIRUBIN,TOTAL 0.3 MG/DL (0.1-1.0); BUN/CREATININE RATIO 21; CALCIUM 8.7 MG/DL (8.5-10.1); CREATININE SERUM 0.87 MG/DL (0.60-1.30); GFR ESTIMATED > 60; GLUCOSE 85 MG/DL (70-105); TOTAL PROTEIN 7.2 GM/DL (6.4-8.2)
== END 2020-06-02 | disposition home or self-care (01) ==
LOC: ONC 14:59
PROVIDERS: ATTEND Internal Medicine Hematology & Oncology
DX: C20 Malignant neoplasm of rectum (principal); Z98.890 Other specified postprocedural states
CPT/HCPCS: 80053; 82378; 83735; 85025; G0463; 99213

== ENCOUNTER 2020-09-03 14:51 | Outpatient (RCR) | payer BC ==
[2020-09-03 15:09] LABS: BASOPHILS % (AUTO) 1 % (0-10); EOSINOPHILS # (AUTO) 0.2 10^3/uL (0.0-0.3); EOSINOPHILS % (AUTO) 3 % (0-10); HEMATOCRIT 43 % (40-54); HEMOGLOBIN 14.5 g/dL (13.3-17.7); LYMPHOCYTES % (AUTO) 16 % (12-44); MEAN CORPUSCULAR HEMOGLOBIN 32 pg (25-34); MEAN CORPUSCULAR HGB CONC 34 g/dL (32-36); MEAN CORPUSCULAR VOLUME 94 fL (80-99); MEAN PLATELET VOLUME 9.6 fL (9.0-12.2); MONOCYTES # (AUTO) 0.5 10^3/uL (0.0-1.0); MONOCYTES % (AUTO) 8 % (0-12); NEUTROPHILS # (AUTO) 4.6 10^3/uL (1.8-7.8); NEUTROPHILS % (AUTO) 73 % (42-75); PLATELET COUNT 266 10^3/uL (130-400); WHITE BLOOD COUNT 6.3 10^3/uL (4.3-11.0)
[2020-09-03 15:41] LABS: BILIRUBIN,TOTAL 0.6 MG/DL (0.1-1.0); CALCIUM 8.9 MG/DL (8.5-10.1); CREATININE SERUM 0.96 MG/DL (0.60-1.30); POTASSIUM 3.8 MMOL/L (3.6-5.0); TOTAL PROTEIN 7.1 GM/DL (6.4-8.2)
== END 2020-12-02 07:51 | disposition home or self-care (01) ==
LOC: ONC 14:51
PROVIDERS: ATTEND Internal Medicine Hematology & Oncology
DX: C20 Malignant neoplasm of rectum (principal); E66.9 Obesity, unspecified; Z98.890 Other specified postprocedural states; Z92.21 Personal history of antineoplastic chemotherapy
CPT/HCPCS: 80053; 82378; 85025; G0463; 99213

== ENCOUNTER → 2020-11-23 | Outpatient (CLI) | payer BC ==
[~2020-11-23] MED LIST changes: +CATHETER FLUSH 10 ML SYR IV PRN; +HOLD METFORMIN - RECEIVED CONTRAST 20 ML VIAL IV SCH; +IOHEXOL 350 MG/ML 100 ML (OMNIPAQUE 350) VIAL IV ONE; +NS 100 ML (IVPB) BAG IV ONE
[2020-11-23 14:48] LABS: HEMATOCRIT 42 % (40-54); HEMOGLOBIN 13.9 g/dL (13.3-17.7); MEAN CORPUSCULAR HEMOGLOBIN 32 pg (25-34); MEAN CORPUSCULAR HGB CONC 33 g/dL (32-36); MEAN CORPUSCULAR VOLUME 95 fL (80-99); WHITE BLOOD COUNT 6.8 10^3/uL (4.3-11.0)
[2020-11-23 14:50] LABS: MEAN PLATELET VOLUME 9.6 fL (9.0-12.2); PLATELET COUNT 267 10^3/uL (130-400)
[2020-11-23 14:51] LABS: BASOPHILS # (AUTO) 0.1 10^3/uL (0.0-0.1); BASOPHILS % (AUTO) 1 % (0-10); EOSINOPHILS # (AUTO) 0.3 10^3/uL (0.0-0.3); EOSINOPHILS % (AUTO) 4 % (0-10); LYMPHOCYTES % (AUTO) 14 % (12-44); MONOCYTES # (AUTO) 0.5 X 10^3 (0.0-1.0); MONOCYTES % (AUTO) 8 % (0-12); NEUTROPHILS % (AUTO) 73 % (42-75)
[2020-11-23 15:16] LABS: CREATININE SERUM 1.05 MG/DL (0.60-1.30); POTASSIUM 3.7 MMOL/L (3.6-5.0)
[2020-11-23 15:17] LABS: BILIRUBIN,TOTAL 0.5 MG/DL (0.1-1.0); CALCIUM 8.9 MG/DL (8.5-10.1); TOTAL PROTEIN 7.2 GM/DL (6.4-8.2)
[2020-11-23 15:18] LABS: ALBUMIN 4.1 GM/DL (3.2-4.5)
--- NOTE | 2020-11-23 20:29 | Diagnostic Imaging Report ---
PROCEDURE: CT chest with contrast, CT abdomen and pelvis with and without contrast. TECHNIQUE: Pre and post intravenous contrast axial imaging of the abdomen and pelvis and post contrast axial imaging of the chest were performed. Auto Exposure Controls were utilized during the CT exam to meet ALARA standards for radiation dose reduction. INDICATION: Rectal carcinoma. Surveillance follow-up. COMPARISON: 03/02/2020 exam. The patient is post surgery and chemotherapy. FINDINGS: CT CHEST: Good opacification of the aorta and pulmonary arteries. Vessels appear normal. The lungs are well aerated. No infiltrates or masses have developed. No mediastinal or hilar adenopathy of pathologic size. No pleural effusion or pericardial effusion. The adrenal glands are not enlarged. No bony lesions demonstrated. IMPRESSION: 1. Normal CT chest with no changes to suggest metastatic disease. CT ABDOMEN AND PELVIS: The liver is not enlarged. Two tiny low density areas are again noted in the inferior aspect of the right lobe of the liver which are unchanged. There is no abnormal enhancement seen. The gallbladder and bile duct are normal. The pancreas and spleen are normal. The adrenal glands are not enlarged. There is mild hydronephrosis on the right. No calculi are seen in the right kidney. There is a tiny nonobstructing calculus in the lower pole of the left kidney. The right ureter is dilated to the pelvis and abuts the area of previous surgery. There has been definite change at this level with thickening of the rectal wall on the right. There is concern for recurrent tumor with invasion into the adjacent mesorectal fat. This area measures approximately 3 cm AP and transverse. No iliac chain adenopathy is demonstrated. There are small mesorectal lymph nodes demonstrated at this level measuring approximately 7 mm in greatest dimension. There is moderate amount of stool throughout the remaining colon proximally. Small bowel is not distended. Prostate is mildly enlarged. Bladder is not distended. There is no free air or free fluid. No blastic or lytic bony changes. IMPRESSION: 1. Adverse findings with what appears to be a recurring rectal mass at the level of the anastomosis with invasion into the adjacent mesorectal fat and encasement of the adjacent right ureter causing moderate hydronephrosis. There are also mesorectal lymph nodes that have developed. The mass type area measures approximately 3 cm. This likely is causing partial obstruction of the colon. No evidence of distal metastasis. Dictated by: Dictated on workstation # [id number]
== END ==
LOC: RAD FS 14:26
PROVIDERS: ATTEND Internal Medicine Hematology & Oncology
DX: C20 Malignant neoplasm of rectum (principal); N13.30 Unspecified hydronephrosis
CPT/HCPCS: 36415; 71260; 74178; 80053; 82378; 85025

== ENCOUNTER 2020-12-03 14:18 | Outpatient (RCR) | payer BC ==
[~2020-12-03 14:18] MED LIST changes: -CATHETER FLUSH 10 ML SYR IV PRN; +CYCL10TA25 PO; -CYCL10TA9 PO; -HOLD METFORMIN - RECEIVED CONTRAST 20 ML VIAL IV SCH; -IOHEXOL 350 MG/ML 100 ML (OMNIPAQUE 350) VIAL IV ONE; -NS 100 ML (IVPB) BAG IV ONE
== END 2021-02-12 | disposition home or self-care (01) ==
LOC: ONC 14:18
PROVIDERS: ATTEND Internal Medicine Hematology & Oncology
DX: C20 Malignant neoplasm of rectum (principal); E66.9 Obesity, unspecified; Z98.890 Other specified postprocedural states; Z92.21 Personal history of antineoplastic chemotherapy
CPT/HCPCS: 99213

== ENCOUNTER → 2020-12-08 | Outpatient (CLI) | payer BC ==
[~2020-12-08] MED LIST changes: -CYCL10TA25 PO; +CYCL10TA9 PO
--- NOTE | 2020-12-08 13:50 | Diagnostic Imaging Report ---
INDICATION: Malignant neoplasm of the rectum with abnormal CT scan. Study is performed for subsequent restaging. TECHNIQUE: Serum blood glucose level at the time of injection is 92 mg/dL. Patient was administered 14.4 mCi of F-18 FDG intravenously in right antecubital location and PET imaging was performed from the top of the skull to mid thighs. Noncontrast CT was also performed for attenuation correction and anatomic correlation. COMPARISON: No prior PET/CT scans are available for comparison. Comparison is made with conventional CT chest, abdomen, and pelvis study from 11/23/2020. FINDINGS: There is symmetric activity throughout the brain. Soft tissues of the neck are unremarkable. No hypermetabolic foci within the jan or mediastinum are seen. There is no pulmonary parenchymal hypermetabolism. Imaging through the abdomen and pelvis does show hypermetabolic mass in the right paramidline pelvis at the area of abnormal CT consistent with a recurrent rectal mass at the anastomosis. SUV max is 48.2. No hypermetabolic abdominal or pelvic lymph nodes are identified. Again noted is hydroureteronephrosis on the right suggestive of tumor invasion of the distal right ureter. IMPRESSION: Hypermetabolic mass in the low right paramidline pelvis adjacent to the rectal anastomosis consistent with recurrent rectal neoplasm. This appears to be involving the distal right ureter producing right-sided hydroureteronephrosis. No other hypermetabolic foci are identified. Dictated by: Dictated on workstation # [id number]
== END ==
LOC: RAD 10:30
PROVIDERS: ATTEND Internal Medicine Hematology & Oncology
DX: C20 Malignant neoplasm of rectum (principal); R93.89 Abnormal findings on diagnostic imaging of other specified body structures
CPT/HCPCS: 78815; A9552

== ENCOUNTER 2021-06-03 11:04 | Outpatient (RCR) | payer BC ==
[2021-05-18 09:29] LABS: BASOPHILS % (AUTO) 1 % (0-10); EOSINOPHILS # (AUTO) 0.3 10^3/uL (0.0-0.3); EOSINOPHILS % (AUTO) 5 % (0-10); HEMATOCRIT 32 % (40-54); HEMOGLOBIN 10.3 g/dL (13.3-17.7); LYMPHOCYTES # (AUTO) 0.6 10^3/uL (1.0-4.0); LYMPHOCYTES % (AUTO) 11 % (12-44); MEAN CORPUSCULAR HEMOGLOBIN 30 pg (25-34); MEAN CORPUSCULAR HGB CONC 32 g/dL (32-36); MEAN CORPUSCULAR VOLUME 92 fL (80-99); MONOCYTES # (AUTO) 0.4 10^3/uL (0.0-1.0); MONOCYTES % (AUTO) 7 % (0-12); NEUTROPHILS # (AUTO) 4.4 10^3/uL (1.8-7.8); NEUTROPHILS % (AUTO) 76 % (42-75); PLATELET COUNT 293 10^3/uL (130-400); WHITE BLOOD COUNT 5.8 10^3/uL (4.3-11.0)
[2021-05-18 09:54] LABS: ALBUMIN 3.6 GM/DL (3.2-4.5); BILIRUBIN,TOTAL 0.3 MG/DL (0.1-1.0); CALCIUM 8.6 MG/DL (8.5-10.1); CREATININE SERUM 0.95 MG/DL (0.60-1.30); POTASSIUM 3.5 MMOL/L (3.6-5.0); TOTAL PROTEIN 6.5 GM/DL (6.4-8.2)
[2021-06-01 10:21] LABS: BASOPHILS % (AUTO) 1 % (0-10); EOSINOPHILS # (AUTO) 0.3 10^3/uL (0.0-0.3); EOSINOPHILS % (AUTO) 7 % (0-10); HEMATOCRIT 32 % (40-54); HEMOGLOBIN 10.4 g/dL (13.3-17.7); LYMPHOCYTES # (AUTO) 0.6 10^3/uL (1.0-4.0); LYMPHOCYTES % (AUTO) 15 % (12-44); MEAN CORPUSCULAR HEMOGLOBIN 29 pg (25-34); MEAN CORPUSCULAR HGB CONC 32 g/dL (32-36); MEAN CORPUSCULAR VOLUME 91 fL (80-99); MEAN PLATELET VOLUME 8.6 fL (9.0-12.2); MONOCYTES # (AUTO) 0.3 10^3/uL (0.0-1.0); MONOCYTES % (AUTO) 8 % (0-12); NEUTROPHILS # (AUTO) 2.8 10^3/uL (1.8-7.8); NEUTROPHILS % (AUTO) 70 % (42-75); PLATELET COUNT 327 10^3/uL (130-400)
[2021-06-01 10:41] LABS: ALBUMIN 3.6 GM/DL (3.2-4.5); BILIRUBIN,TOTAL 0.5 MG/DL (0.1-1.0); CALCIUM 8.8 MG/DL (8.5-10.1); CREATININE SERUM 0.97 MG/DL (0.60-1.30); POTASSIUM 3.7 MMOL/L (3.6-5.0); TOTAL PROTEIN 6.7 GM/DL (6.4-8.2)
[~2021-06-03] VITALS: Ht 172.7 cm; Wt 91.2 kg
[~2021-06-03 11:04] MED LIST changes: +ATROPINE INJ 0.4 MG/ML SDV IV SCH; +CYCL10TA25 PO; -CYCL10TA9 PO; +D5W IV SCH; +HEParin (CENTRAL IV FLUSH) 500 UNIT/5 ML SYR IV PRN; +IRINOTECAN HCL IV SCH; +LEUCOVORIN CALCIUM IV SCH; +NS IV 1000 ML (CANCER CTR) IV SCH; +ONDANSETRON MDV (CANCER CENTER 8 MG in NS (IVPB) 50 ML IV SCH; +PALONOSETRON HCL 0.25 MG, dexAMETHasone INJECTION 10 MG in NS (IVPB) 50 ML IV SCH; +fluorouraciL 4,800 MG in NS (IVPB) 51.2 ML IV SCH
== END 2021-06-09 10:27 | disposition home or self-care (01) ==
LOC: ONC 11:04
PROVIDERS: ATTEND Internal Medicine Hematology & Oncology
DX: Z51.11 Encounter for antineoplastic chemotherapy (principal); Z45.2 Encounter for adjustment and management of vascular access device; C20 Malignant neoplasm of rectum; E66.9 Obesity, unspecified
CPT/HCPCS: 80053; 85025; 96360; 96367; 96368; 96375; 96411; 96413; 96415; 96416; G0463; 36591; 99213; 99214